=== PATIENT | female | born 1965 | race Caucasian/White ===

== ENCOUNTER 2024-06-16 08:04 | Outpatient (AMB) | payer OTHER, SELFPAY ==
--- NOTE | 2024-06-16 08:07 | MHC.PC.OV ---
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: No Accompanied by: Self / Same As Patient Allergies atorvastatin Allergy (Unknown, Uncoded 06/16/24 08:13) hives, joint pain metformin Adverse Reaction (Intermediate, Uncoded 06/16/24 08:13) hives plavix Adverse Reaction (Unknown, Uncoded 06/16/24 08:13) Unknown Medication List - Last Reconciled 06/16/24 by Becky Brooks PA-C apixaban (Eliquis) 5 mg PO BID colestipol 1 g PO BID diltiazem HCl ER (Tiadylt ER) 360 mg PO DAILY estradiol 0.01%(0.1mg/gram) vaginal losartan 50 mg PO DAILY metoprolol succinate ER 25 mg PO DAILY jelxispmqbom-ruq-grdd-FA-vit K 18 mg iron-400 mcg-25 mcg (Adults Multivitamin) tabs PO naproxen sodium 440 mg PO DAILY nystatin (Nyamyc) topical BID zinc glycinate 30 mg PO DAILY Tobacco use date assessed: 06/16/24 Dental Screening Dental Screen Date: 06/16/24 Did you have a dental visit in the last 12 months?: No Did you have a dental problem in the last 6 months where you did not have access to dental care?: No Was dental information given to patient?: Patient has dentist HPI 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 She has a history of paroxysmal atrial fibrillation on anticoagulation and is followed by Cardiology. She was recently seen 04/2024 by Cardiology after failed cardioversion continue on metoprolol and diltiazem for rate control and Eliquis for anticoagulation. Presenting with diarrhea management and follow-up for chronic conditions. The patient reports ongoing episodes of diarrhea since bariatric surgery on December 19, 2022, characterized by initial regularity, followed by softening and liquidity. Significant weight loss reported post-surgery, maintaining over a 180-pound reduction. Diarrheal episodes are influenced by food intake and have been partially managed through the BRAT diet and Pepto-Bismol, with limited efficacy. Evaluations at [facility] and [facility], including bloodwork, CT scans, and stool analyses, excluded infectious causes. The patient associates symptoms with possible malabsorption due to the absence of the gallbladder and patient was recently evaluated by [facility] and started on colestipol and plan for colonoscopy. The patient denies nausea, vomiting, and fever but has substantial concerns about her nutritional status and overall health. She follows with gynecology through [facility] and has Pap smears regularly. [facility] Surgical History S/P gastric sleeve procedure History of cholecystectomy Family History Family/Other Substance use disorder Mother No problems noted. Father No problems noted. Social History Housing: Apartment Alcohol intake: current Alcohol intake frequency: holidays/special occasions only Alcohol type: hard liquor Patient Tobacco Use Status: Never used Tobacco e-Cigarette/Vaping Use: Never Used Second Hand Smoke Exposure: No service: No Current occupational status: employed Cognitive needs: No Hearing needs: No Vision needs: No Female Reproductive History Menstrual control method: none Total pregnancies: 6 Full term: 2 Ab induced: 1 Ab spontaneous: 3 History of abnormal pap smear: No Questionnaire PHQ-9 Over the last 2 weeks, how often have you been bothered by any of the following problems? 1. Little interest or pleasure in doing things: not at all 2. Feeling down, depressed, or hopeless: several days 3. Trouble falling or staying asleep, or sleeping too much: not at all 4. Feeling tired or having little energy: not at all 5. Poor appetite or overeating: several days 6. Feeling bad about yourself - or that you are a failure or have let yourself or your family down: not at all 7. Trouble concentrating on things, such as reading the newspaper or watching television: not at all 8. Moving or speaking so slowly that other people could have noticed. Or the opposite - being so fidgety or restless that you have been moving around a lot more than usual: not at all 9. Thoughts that you would be better off or of hurting yourself in some way: not at all Total score: 2 Depression Screening Interpretation: Positive Depression Screening Follow-up: Declines treatment Depression Screening Done: Yes Source: Developed by Drs. Oj Suero, Mimi Miguel, Mitch Piper and colleagues, with an educational spencer from [employer]. Thrive Questionnaire Date Thrive assessed: 06/16/24 I am a: Patient What is your living situation today?: I have a steady place to live Within the past 12 months, did the food you bought not last and you didn't have the money to get more?: Never true Within the past 12 months, did you worry whether your food would run out before you got money to buy more?: Never true Do you have trouble paying for medicines?: I choose not to answer this question Do you have trouble getting transportation to medical appointments?: No Do you have trouble paying your heating and electricity bill?: No Do you have trouble taking care of your child, family member or friend?: No Do you have trouble with day-to-day activities such as bathing, preparing meals, shopping, managing finances, etc.?: No Are you currently unemployed and looking for a job?: No Are you interested in more education?: No Please select the resources that you would like help with: None Currently or been in a relationship where the following occur: I choose not to answer THRIVE Score: 0 AUDIT C Alcohol Use Questionnaire (AUDIT-C) 1. How often do you have a drink containing alcohol?: Monthly or less 2. How many drinks containing alcohol do you have on a typical day when you are drinking?: 1 or 2 3. How often do you have six or more drinks on one occasion?: Less than monthly Total Score: 2 HERO-7 AMB Questionnaire HERO-7 Date HERO - 7 assessed: 06/16/24 Feeling nervous, anxious, or on edge: 1 = Several days Not being able to stop or control worryin = Several days Worrying too much about different things: 0 = Not at all Trouble relaxin = Not at all Being so restless that it is hard to sit still: 0 = Not at all Becoming easily annoyed or irritable: 1 = Several days Feeling afraid as if something awful might happen: 1 = Several days Total HERO-7 score (0-4 normal; 5-9 mild; 10-14 moderate; 15-21 severe): 4 Source: Developed by Drs. Oj Suero, Mimi Miguel, Mitch Piper and colleagues, with an educational spencer from [employer]. HERO-7 Assessment Billing HERO-7 Assessment Tool: HERO-7 Assessment 15318 Review of Systems Const Denies body aches, Denies chills, Denies fever(s), Denies headache(s) and Denies poor appetite Eyes Reports no additional complaints ENT Denies dysphagia, Denies dizziness, Denies headache(s) and Denies odynophagia Card Denies chest pain, Denies syncope, Denies edema, Denies irregular heart rhythm, Denies lightheadedness and Denies dyspnea Resp Denies cough and Denies dyspnea GI Denies abdominal pain, Reports bloating, Denies constipation, Denies dysphagia, Reports excessive flatus, Reports diarrhea, Denies nausea, Denies odynophagia and Denies vomiting Reports no additional complaints Musc Reports no additional complaints and Denies abnormal gait Skin/Breast Reports system reviewed and no additional complaints, except as documented Neuro Denies abnormal gait, Denies dizziness, Denies syncope and Denies headache(s) Psych Reports no additional complaints Physical exam (Primary Care) Vital Signs: Last Vital Signs Temp 97.1 F 06/16/24 08:09 BP 120/86 06/16/24 08:09 BMI result Body Mass Index 26.0 Tobacco/Smoking Status: Tobacco use Status Tobacco use date assessed 06/16/24 06/16/24 08:19 Patient Tobacco Use Status Never used Tobacco 06/16/24 08:19 e-Cigarette/Vaping Use Never Used 06/16/24 08:19 PHQ-9: PHQ-9 Score PHQ-9: Total score 2 06/16/24 10:09 Depression Screening Interpretation: Positive Depression Screening Follow-up: Declines treatment Thrive Assessment: Date of Thrive Assessment Date Thrive assessed 06/16/24 06/16/24 08:13 Currently or been in a relationship where the following occur: I choose not to answer Const General: cooperative, healthy appearing, comfortable and no acute distress Orientation/consciousness: patient oriented x3 HENMT Head: Yes normocephalic Ears: hearing grossly normal bilaterally General nose exam: Normal external nose present Eyes General: appearance normal, both eyes and all related structures Conjunctivae: conjunctivae normal Neck Neck: Yes full ROM and Yes no lymphadenopathy Resp Effort & Inspection: normal respiratory effort Auscultation: clear to auscultation bilaterally, no crackles, no rales, no rhonchi and no wheezes Cardio Rate: regular rate Rhythm: regular rhythm Skin General skin exam: no rashes or lesions noted Neuro General: patient oriented x3 Gait exam (Neuro): Normal gait present Extrem General: Yes normal to inspection, Yes full ROM and No edema Psych Affect: normal affect Attitude: cooperative Insight: Good insight present (Psych) Judgement: Good judgement present (Psych) Coding Level of Care Code New Pt Level 4 (51049) Diagnoses Persistent atrial fibrillation I48.19 Atrial fibrillation type: persistent (not longstanding) Primary hypertension I10 Hypertension type: primary hypertension Diarrhea due to malabsorption K90.9; R19.7 Diarrhea type: due to malabsorption Malabsorption K90.9 Diverticulosis K57.90 Additional Codes HERO-7 Assessment Billing - HERO-7 Assessment Tool: HERO-7 Assessment 17490 ([id number]) Assessment & Plan Assessment & Plan (1) Atrial fibrillation: Comment: Cardiology Code(s): I48.91 - Unspecified atrial fibrillation Category: Medical Qualifiers: Atrial fibrillation type: persistent (not longstanding) Qualified Code(s): I48.19 - Other persistent atrial fibrillation Plan: Follows with [facility] had unsuccessful ablation. She is maintained on metoprolol and diltiazem and anticoagulation with Eliquis. (2) Hypertension: Code(s): I10 - Essential (primary) hypertension Category: Medical Qualifiers: Hypertension type: primary hypertension Qualified Code(s): I10 - Essential (primary) hypertension Plan: Continue on current blood pressure medication. Avoid salt intake and encourage healthy diet and regular exercise. (3) Diarrhea: Code(s): R19.7 - Diarrhea, unspecified Category: Medical Qualifiers: Diarrhea type: due to malabsorption Qualified Code(s): K90.9 - Intestinal malabsorption, unspecified; R19.7 - Diarrhea, unspecified Plan: Patient is following with [facility] was seen yesterday. She was started on colestipol for possible malabsorption and planned for colonoscopy. I did also recommend the use of sucralfate which patient has not home to treat gas and bloating symptoms. Also recommended adding a fiber supplement to the diet to help bulk the stools. Continue to follow up with GI (4) Malabsorption: Code(s): K90.9 - Intestinal malabsorption, unspecified Category: Medical Plan: See plan above (5) Diverticulosis: Code(s): K57.90 - Diverticulosis of intestine, part unspecified, without perforation or abscess without bleeding Category: Medical Plan: Patient was diagnosed with diverticulosis by her GI provider and is planning to have colonoscopy to be scheduled with [facility]. Plan To address the patient?s chronic diarrhea, we will initiate treatment with colestipol to manage bile acid symptoms associated with prior cholecystectomy. This will be taken twice daily, complemented by dietary modifications involving fiber supplements with meals. We will explore a trial of the low FODMAP diet for potential sensory triggers. Use simethicone as needed for gas relief. Coordination with the gastroenterology team at [facility] for follow-up and colonoscopy scheduling is a priority. A three-month follow-up appointment is planned to monitor the patient's response to interventions and overall health maintenance, including overdue mammograms. This note was constructed using voice recognition software. While every effort has been made to ensure accuracy and sand technician, still areas may have been included sometimes these areas may affect the content or meeting of the given symptoms. Total time spent caring for the patient today was 30 minutes. This includes time spent before the visit reviewing the chart, time spent during the visit, and time spent after the visit and documentation. Patient was informed and verbally consented to the use of an ambient scribe for clinic note documentation during this visit. Orders: Orders MM tomosynthesis screening BI Today Z12.31 - Encounter for screening mammogram for malignant neoplasm of breast
--- OUTSIDE RECORDS SUMMARY | 2024-06-16 08:07 | XMS_ITS | Encounter Summary ---
Author Organization [facility] Address [address] [place] [address] Care Team Providers Care Scheduling Coordinator Name Role Phone Sonam Boles MD Primary Care Provider [phone] Reason for Visit * Reason Comments steatorrhea * Consultation (Routine) - Authorized Specialty Diagnoses / Procedures Referred By Alpohnso van Referred To Contact Gastroenterology Diagnoses Overweight (BMI 25.0-29.9) Steatorrhea Bariatric surgery status Ritika Payan PA 175 [facility] [address] [place] [address] Phone: tel: fax: Gastroenterology - [place] [address] [place] [address] Phone: tel: fax: Referral ID Status Reason Start Date Expiration Date Visits Requested Visits Authorized [id number] Authorized Specialty Services Required 05/18/2024 05/18/2025 1 1 Encounter Details Date Type Department Care Team ([facility] Contact Info) Description 06/15/2024 1:20 PM EDT Consult Gastroenterology [facility] 175 [facility] 175 [facility] [address] [place] [address] Merna Saravia NP 175 [facility] [address] [place] [address] Intestinal malabsorption following gastrectomy (Primary Dx); Screening for colorectal cancer; Gassiness Social History Tobacco Use Types Packs/Day Years Used Date Smoking Tobacco: Never Smokeless Tobacco: Never Alcohol Use Standard Drinks/Week Comments Yes 0 (1 standard drink = 0.6 oz pur e alcohol) occasional Comments No Sex and Gender Information Value Date Recorded Sex Assigned at Female 04/07/2024 10:52 PM EST Legal Sex Female 10:25 AM EST Gender Identity Female 04/07/2024 10:52 PM EST Sexual Orientation Choose not to disclose 2024 10:52 PM EST documented as of this encounter Last Filed Vital Signs Vital Sign Reading Time Taken Comments Blood Pressure 122/75 06/15/2024 1:12 PM EDT Pulse 98 06/15/2024 1:12 PM EDT Temperature - - Respiratory Rate - - Oxygen Saturation 98% 06/15/2024 1:12 PM EDT Inhaled Oxygen Concentration - - Weight 77.6 kg (171 lb) 06/15/2024 1:12 PM EDT Height 172.7 cm (5' 8 ) 06/15/2024 1:12 PM EDT Body Mass Index 26 06/15/2024 1:12 PM EDT documented in this encounter Functional Status * Are you deaf or do you have serious difficulty hearing? Answer Date of Assessment Author No 04/07/2024 3:44 PM Jessika Harrison RN * Are you blind or do you have serious difficulty seeing, even when wearing glasses? Answer Date of Assessment Author No 04/07/2024 3:44 PM Jessika Harrsion RN * Do you have serious difficulty walking or climbing stairs? Answer Date of Assessment Author No 04/07/2024 3:44 PM Jessika Harrison RN * Do you have serious difficulty dressing or bathing? Answer Date of Assessment Author No 04/07/2024 3:44 PM Jessika Harrison RN * Because of a physical, mental, or emotional condition, do you have serious difficulty doing errandsalone such as visiting the doctor? Answer Date of Assessment Author No 04/07/2024 3:44 PM Jessika Harrison RN documented as of this encounter Mental Status * Because of a physical, mental, or emotional condition, do you have serious difficulty concentrating, remembering, or making decisions? (5 years old or older) Answer Entry Date Author No 04/07/2024 3:44 PM Jessika Harrison RN documented in this encounter Ordered Prescriptions Prescription Sig Dispense Quantity Refills Last Filled Start Date End Date colestipoL (COLESTID) 1 gram tablet Take 1 tablet (1 g total) by mouth 2 (two) times a day. 60 each 06/15/2024 07/15/2024 documented in this encounter Progress Notes * Merna Saravia, ERP ANALYST - 06/15/2024 1:20 PM EDT CONSULT REQUEST CHIEF COMPLAINT: Diarrhea HPI: Hallie Mays is a 58 y.o. old female whose PMH includes anxiety, atrial fibrillation, chronic knee pain, diabetes, hiatal hernia, hypertension, obstructive sleep apnea, trochanteric bursitis of left hip, ventricular septal defect and s/p gastric sleeve gastrectomy 2022 was referred by Ritika Payan PA to the gastroenterology department today for evaluation of diarrhea. Patient is accompanied by a male friend during this visit. She reports sleeve gastrectomy with hiatal hernia repair with Dr. Figueroa at [facility] on 12/19/2022. However, she has been experiencing diarrhea multiple times a day. She describes diarrhea as type or type VII on [place] stool chart with associated abdominal cramping that is relieved with defecation and gassiness. She notesstool looks like it is fatty . She completed stool studies on 04/05/2024 which were unremarkable. She completed CT scan on 05/25/2024 which was unremarkable. Today, she denies fever or malaise, nausea,vomiting, dysphagia, odynophagia, hematemesis, abdominal pain, loss of appetite, unintentional weight loss, melena or hematochezia. She denies alcohol, tobacco or marijuana use. No known family history of gastrointestinal cancer. No historical colonoscopy or EGD. CT abdomen/pelvis without contrast 05/25/2024: Sigmoid diverticulitis. No evidence of acute diverticulitis or colitis. No acute findings. ROS: GENERAL: No malaise, significant weight loss or fever HEENT: No changes in hearing or vision, nose bleeds or swallowing problems NECK: No lumps, goiter, pain or significant neck swelling RESPIRATORY: No cough, wheezing or shortness of breath CARDIOVASCULAR: No chest pain GI: See HPI MUSCULOSKELETAL: No joint pain or swelling, back pain, or muscle pain. SKIN: No lesions, rash or itching PAST MEDICAL HISTORY: Patient Active Problem List Diagnosis Abnormal stress test Anxiety Atrial fibrillation with RVR ([facility] V24, [facility] V28) Chronic knee pain Diabetes ([facility] V24, [facility] V28) Hiatal hernia Hypertension Obstructive sleep apnea Trochanteric bursitis, left hip VSD (ventricular septal defect) Class 1 obesity with serious comorbidity and body mass index (BMI) of 30.0 to 30.9 in adult Overweight (BMI 25.0-29.9) Bariatric surgery status PAST SURGICAL HISTORY: Past Surgical History: Procedure Laterality Date CHOLECYSTECTOMY PROCEDURE: HISTORICAL CHOLECYSTECTOMY OTHER SURGICAL HISTORY PROCEDURE: NM GASTRIC RSTCV W/PRTL GASTRECTOMY 50-100 CM; COMMENT: sleeve- on 2022 WISDOM TOOTH EXTRACTION PROCEDURE: HISTORICAL WISDOM TEETH EXTRACTION SOCIAL HISTORY: Social History Tobacco Use Smoking status: Never Smokeless tobacco: Never Substance Use Topics Alcohol use: Yes Comment: occasional Drug use: No FAMILY HISTORY: No family history on file. MEDICATIONS: Outpatient Medications Marked as Taking for the 06/15/24 encounter (Consult) with Merna Saravia NP Medication Sig Dispense Refill apixaban (Eliquis) 5 mg tablet TAKE ONE TABLET BY MOUTH TWICE A DAY dilTIAZem (TIAZAC) 360 mg 24 hr capsule Take 1 capsule (360 mg total) by mouth 1 (one) time each day. 90 capsule 1 estradioL (ESTRACE) 0.01 % (0.1 mg/gram) vaginal cream Apply 1gm apply pv daily for the 1st wk thentwice wkly losartan (COZAAR) 50 mg tablet TAKE ONE TABLET BY MOUTH EVERY DAY metoprolol succinate (TOPROL-XL) 25 mg 24 hr tablet Take 1 Tablet by mouth daily. multivit-min/iron/folic acid/K (ADULTS MULTIVITAMIN ORAL) Take 1 Tablet by mouth daily. naproxen sodium (ANAPROX) 220 mg tablet Take 2 Tablets by mouth daily as needed. nystatin (MYCOSTATIN) 100,000 unit/gram powder Apply topically 2 (two) times a day. 15 g 0 zinc glycinate 30 mg capsule Take 1 Capsule by mouth daily. ALLERGIES: Allergies Allergen Reactions Atorvastatin Calcium Other Reaction(s): Hives/Urticaria Clopidogrel Other Reaction(s): Hives/Urticaria Metformin Rash with sun PHYSICAL EXAM: Visit Vitals BP 122/75 Pulse 98 Ht 1.727 m (68 ) Wt 77.6 kg (171 lb) SpO2 98% BMI 26.00 kg/m?? OB Status Postmenopausal Smoking Status Never BSA 1.91 m?? APPEARANCE: Alert and in no acute distress EYES: Conjunctiva and sclera normal. MOUTH/THROAT: No erythema, exudates or lesions noted NECK: Neck supple, no adenopathy HEART: RRR with normal S1 and S2 LUNG: clear to auscultation ABDOMEN: soft non tender, no ascites, guarding, or rebound. RECTAL: Exam deferred NEURO: Awake, alert and oriented x 3 SKIN: Skin color, texture, turgor normal. LABS: Lab Results Component Value Date WBC 4.0 (L) 04/07/2024 HGB 14.1 04/07/2024 HCT 45.1 04/07/2024 MCV 90.2 04/07/2024 PLT 182 04/07/2024 Lab Results Component Value Date ALT 20 04/26/2024 AST 20 04/26/2024 ALKPHOS 130 (H) 04/26/2024 BILITOT 0.7 04/26/2024 IMAGING: CT abdomen/pelvis without contrast 05/25/2024: Sigmoid diverticulitis. No evidence of acute diverticulitis or colitis. No acute findings. IMPRESSION: 1. Intestinal malabsorption following gastrectomy 2. Screening for colorectal cancer PLAN: Hallie Mays is a 58 y.o. old female whose PMH includes anxiety, atrial fibrillation, chronic knee pain, diabetes, hiatal hernia, hypertension, obstructive sleep apnea, trochanteric bursitis of left hip, ventricular septal defect and s/p gastric sleeve gastrectomy 2022 presents for evaluation of danie sims. 1. Intestinal malabsorption following gastrectomy: Stool studies including GI panel and C. difficile completed through her PCP negative. CT scan completed 05/25/2024 unremarkable. There is a question if diarrhea is due to intestinal malabsorption sincesymptoms started after sleeve gastrectomy. Please also question of bile salt induced diarrhea givenhistory of cholecystectomy. Empiric trial of colestipol. Also, complete pancreatic elastase given subjective steatorrhea. 2. Screening for colorectal cancer: No historical colonoscopy. I reviewed colorectal cancer screening guidelines, risks and benefits. She will proceed with screening colonoscopy. Patient understands the risks of colonoscopy include infection, bleeding and/or bowel perforation with its own emergent surgery and complication. Polypectomy and/or tissue biopsy may be performed during the procedure. 3. Gassiness: May use Gas-X or simethicone as needed. Eliminate gas producing foods. Follow-up after colonoscopy or sooner if needed. Patient agrees with the above plan and understands the need to follow up as indicated. Please note, this note may have been created in part by using [employer] dictation software, and therefore, it may contain typographical and/or grammatical errors inherent in a voice recognition software program I would like to thank Ritika Payan PA for the opportunity to partake in the patient's care. Orders Placed This Encounter Procedures Total IgA, TTG Ab IgA, endomysial Ab IgA and gliadin antibodies Pancreatic elastase 1 AMB REFERRAL TO GASTROENTEROLOGY documented in this encounter Plan of Treatment Upcoming Encounters Date Type Department Care Team (Late st Contact Info) Description 08/13/2024 1:00 PM EDT Nutrition Bariatric Surgery - [address] [phone] Melinda Ann, RD [address] [address] 08/24/2024 1:15 PM EDT Office Visit Bariatric Surgery [address] [phone] Ritika Payan PA [address] [phone] Scheduled Orders Name Type Priority Associated Diagnoses Orde r Schedule Total IgA, TTG Ab IgA, endomysial Ab IgA and gliadin antibodies Lab Routine Intestinal malabsorption following gastrectomy 1 Occurrences starting 06/15/2024 until 06/15/2025 Pancreatic elastase 1 Lab Routine Intestinal malabsorption following gastrectomy 1 Occurrences starting 06/15/2024 until 06/15/2025 documented as of this encounter Visit Diagnoses Diagnosis Intestinal malabsorption following gastrectomy- Primary Screening for colorectal cancer Gassiness Flatulence, eructation, and gas pain documented in this encounter Orders Outpatient Referral Count Last Ordered Date Fir st Ordered Date AMB REFERRAL TO GASTROENTEROLOGY 1 06/16/19 documented in this encounter Care Teams Scheduling Coordinator Relationship Specialty Start Date End Date Sonam Boles MD [address] [place] [address] PCP - General Internal Medicine 04/15/24 documented as of this encounter
--- OUTSIDE RECORDS SUMMARY | 2024-06-16 08:07 | XMS_ITS | Encounter Summary ---
Author Organization [facility] Address [address] [place] [address] Care Team Providers Care Contract Design Agent Name Role Phone Sonam Boles MD Primary Care Provider [phone] Encounter Details Date Type Department Care Team ([facility] st Contact Info) Description 06/15/2024 Telephone Gastroenterology - [place] 175 [facility] 175 [facility] [address] [place] [address] Merna Saravia NP 175 [facility] [address] [place], [place] [phone] Social History Tobacco Use Types Packs/Day Years [...] PM EST documented as of this encounter Functional Status * Are you deaf or do you have serious difficulty hearing? Answer Date of Assessment Author No 04/07/2024 3:44 PM EST Jessika Flowers RN * Are you blind or do you have serious difficulty seeing, even when wearing glasses? Answer Date of Assessment Author No 04/07/2024 3:44 PM EST Jessika Flowers RN * Do you have serious difficulty [...] Jessika Harrison RN documented in this encounter Progress Notes * Merna Saravia NP - 06/15/2024 4:35 PM EDT Please schedule screening colonoscopy next available. Thank you. documented in this encounter Plan of Treatment Upcoming Encounters Date Type Department Care Team (Late st Contact Info) Description 08/13/2024 1:00 PM EDT Nutrition Bariatric Surgery - [address] [phone] [phone] 08/24/2024 1:15 PM EDT Office Visit Bariatric Surgery - [place] [address] [phone] Ritika Payan PA [address] [phone] documented as of this encounter Visit Diagnoses Not on filedocumented in this encounter Care Teams Contract Design Agent Relationship Specialty Start Date End Date Sonam Boles MD [address] [facility] [place] [address] PCP - General Internal Medicine 04/15/24 documented as of this encounter
--- OUTSIDE RECORDS SUMMARY | 2024-06-16 08:07 | XMS_ITS | Clinical Summary ---
Author Organization 175 [facility] Address [address] [place] [address] Phone Care Team Providers Care First Dyer Name Role Phone Sonam Boles MD Primary Care Provider [phone] Allergies Active Allergy Reactions Criticality Noted Date Comments Atorvastatin Calcium 02/04/2019 Other Reaction(s): Hives/Urticaria Clopidogrel 04/02/2019 Other Reaction(s): Hives/Urticaria Metformin 09/03/2022 Rash with sun Medications losartan (COZAAR) 50 mg tablet TAKE ONE TABLET BY MOUTH EVERY DAY 4 Active apixaban (Eliquis) 5 mg tablet TAKE ONE TABLET BY MOUTH TWICE A DAY 4 Active metoprolol succinate (TOPROL-XL) 25 mg 24 hr tablet Take 1 Tablet by mouth daily. 4 Active zinc glycinate 30 mg capsule Take 1 Capsule by mouth daily. 4 Active naproxen sodium (ANAPROX) 220 mg tablet Take 2 Tablets by mouth daily as needed. Active multivit-min/iron /folic acid/K (ADULTS MULTIVITAMIN ORAL) Take 1 Tablet by mouth daily. Active estradioL (ESTRACE) 0.01 % (0.1 mg/gram) vaginal cream Apply 1gm apply pv daily for the 1st wk then twice wkly 4 11/01/19 25 Active nystatin (MYCOSTATIN) 100,000 unit/gram powder Apply topically 2 (two) times a day. 15 g 4 01/13/20 25 Active dilTIAZem (TIAZAC) 360 mg 24 hr capsule Take 1 capsule (360 mg total) by mouth 1 (one) time each day. 90 capsule 1 5 Active colestipoL (COLESTID) 1 gram tablet Take 1 tablet (1 g total) by mouth 2 (two) times a day. 60 each 5 07/16/19 25 Active Active Problems Problem Noted Date Diagnosed Date Bariatric surgery status 01/06/2024 Overweight (BMI 25.0-29.9) 12/22/2023 Class 1 obesity with serious comorbidity and body mass index (BMI) of 30.0 to 30.9 in adult 06/23/2023 Abnormal stress test 01/20/2023 Overview (11/12/2023): Last Assessment & Plan: Patient had a cardiac PET stress test which showed no evidence of ischemia however there was reduced blood flow with stress in 3 major coronary arteries. We will continue with risk factor modifying strategies. Patient is status post recent bariatric surgery and she is actively exercising and losing weight. Her blood pressure is poorly controlled and we have addressed that today. She presently is not on any lipid-lowering agents. Her last LDL cholesterol was 89. She will continue with her diet and exercise and we will continue to monitor carefully. Atrial fibrillation with RVR (CMS/HCC V24, CMS/H CC V28) 05/20/2022 Overview (11/12/2023): Last Assessment & Plan: Patient has history of atrial fibrillation with history of unsuccessful cardioversion in the past. She has been on diltiazem for rate control and Eliquis for anticoagulation. Heart rate is slightly elevated today and I will add metoprolol 25 mg once a day which she will take at night. She will continue with diltiazem 360 mg in the morning. Her EKG did show some ST and T wave abnormality however she is asymptomatic and denies any exertional anginal symptoms. I believe this is likely related to her aberrantly conducted complexes. I am hopeful that this will improve with the addition of metoprolol. She had a cardiac PET stress test completed prior to surgery which showed no evidence of ischemia. Continue with Eliquis for anticoagulation. Assessment & Plan (04/27/2024 2:58 PM EDT): Patient with chronic atrial fibrillation. Failed to maintain sinus rhythm after cardioversion. Relatively asymptomatic but requires metoprolol and diltiazem for rate control. We reviewed the Eliquis for anticoagulation without bleeding problems. Had negative PET scan done prior to gastric bypass surgery.The PET scan showed no ischemia. Hiatal hernia 04/30/2022 Obstructive sleep apnea 06/18/2021 Overview (11/12/2023): Obstructive sleep apnea moderate AHI 15 with nocturnal hypoxemia: [facility] Home sleep test 06/11/2021. Weight 335. BMI 49. AHI 15. 11 obstructive apneas, 1 central apnea and 66 hypopneas. Average oxygen saturation 91% with oxygen donna 70%. Obstructive sleep apnea-moderate with mostly hypopneas and some obstructive apneas with nocturnal hypoxemia based on 2021 home sleep test. Last Assessment & Plan: Patient has history of sleep apnea. She has been tested in the past but had difficulty with CPAP mask the past. At this point she is using his CPAP nightly. Anxiety 04/03/2020 Diabetes (CMS/HCC V24, CMS/HCC V28) 03/24/2020 Trochanteric bursitis, left hip 04/02/2019 Chronic knee pain 02/05/2019 Overview (11/12/2023): Bursitis and OA VSD (ventricular septal defect) 02/05/2019 Overview (11/12/2023): Last Assessment & Plan: Again she reported a history of a VSD on old echocardiograms. The echocardiogram done in the hospital did not show a significant VSD. We will continue to monitor for this. Hypertension 02/04/2019 Overview (11/12/2023): Last Assessment & Plan: Blood pressure is borderline with a reading today of 140/80. She continues on diltiazem and losartan. Will add metoprolol today. Encounters Date Type Department Care Team Description 06/15/2024 1:20 PM EDT Consult Gastroenterology - [place] [address] [facility] [address] [place] [address] Merna Saravia NP Intestinal malabsorption following gastrectomy (Primary Dx); Screening for colorectal cancer; Gassiness 06/15/2024 Telephone Gastroenterology [facility] 175 [facility] 175 [facility] [address] [place] [address] Merna Saravia NP 05/25/2024 12:23 PM EDT - 05/25/2024 11:59 PM EDT Hospital Encounter [facility] Scan [address] [place] [address] Abdominal pain, unspecified abdominal location; Abdominal distention Discharge Disposition: Home or Self Care 05/24/2024 1:00 PM EDT Nutrition Bariatric Surgery - [address] [place] [address] Overweight (BMI 25.0-29.9) (Primary Dx) 05/18/2024 1:45 PM EDT Office Visit Bariatric Surgery [address] [place] [address] Ritika Payan PA Overweight (BMI 25.0-29.9) (Primary Dx); Steatorrhea; Bariatric surgery status 04/30/2024 Telephone Bariatric Surgery - [address] [place] [address] Ritika Payan PA 04/27/2024 1:30 PM EDT Office Visit [facility] - [address] [place] [phone] Adelfo Mondragon MD Atrial fibrillation with RVR (CMS/HCC V24, CMS/HCC V28) (Primary Dx) 04/15/2024 10:30 AM EST Office Visit Bariatric Surgery [address] [address] Ritika Payan PA Overweight (BMI 25.0-29.9) (Primary Dx); Hx of obesity; Bariatric surgery status; Elevated liver function tests; Diarrhea, unspecified type 04/07/2024 3:06 PM EST - 04/07/2024 10:[address] [facility] [address] [place] [address] Discharge Disposition: Left Against Medical Advice 04/05/2024 1:30 PM EST Office Visit [facility] - [place] [address] [place] [address] Bre Jose NP Diarrhea of presumed infectious origin (Primary Dx) from Last 3 Months Surgical History Surgery Date Site/Laterality Comments CHOLECYSTECTOMY PROCEDURE: HISTORICAL CHOLECYSTECTOMY WISDOM TOOTH EXTRACTION PROCEDURE: HISTORICAL WISDOM TEETH EXTRACTION OTHER SURGICAL HISTORY PROCEDURE: NM GASTRIC RSTCV W/PRTL GASTRECTOMY 50-100 CM; COMMENT: sleeve- on 2022 Medical History Medical History Date Comments Hypertension 02/04/2019 DX:Hypertension VSD (ventricular septal defect) 02/05/2019 DX:VSD (ventricular septal defect) Chronic knee pain 02/05/2019 DX:Chronic kne e pain; COMMENT: Bursitis and OA Trochanteric bursitis, left hip 04/02/2019 DX:Trochanteric bursitis, left hip Morbid obesity with BMI of 5 0.0-59.9, adult ([facility] V24, [facility] V28) 04/02/2019 DX:Morbid obesity wit h BMI of 50.0-59.9, adult ([facility]) History of stroke 04/02/2019 DX:History of stroke Diabetes ([facility] V24, [facility] V28) 03/24/2020 DX:Diabetes ([facility]) Anxiety 04/03/2020 DX:Anxiety Paroxysmal atrial fibrillati on ([facility] V24, [facility] V28) DX:Paroxysmal atrial fibril lation ([facility]) Social History Tobacco Use Types Packs/Day Years Used Date Smoking Tobacco: Never Smokeless Tobacco: Never Tobacco Cessation:Counseling Given: Not Answered Alcohol Use Standard Drinks/Week Comments Yes 0 (1 standard drink = 0.6 oz pur e alcohol) occasional Comments No Sex and Gender Information Value Date Recorded Sex Assigned at Female 04/07/2024 10:52 PM EST Legal Sex Female 10:25 AM EST Gender Identity Female 04/07/2024 10:52 PM EST Sexual Orientation Choose not to disclose 2024 10:52 PM EST Obstetrics History Last Filed Vital Signs Vital Sign Reading Time Taken Comments Blood Pressure 122/75 06/15/2024 1:12 PM EDT Pulse 98 06/15/2024 1:12 PM EDT Temperature 36.5 ??C (97.7 ??F) 04/07/2024 3:39 PM ES T Respiratory Rate 18 04/07/2024 3:39 PM EST Oxygen Saturation 98% 06/15/2024 1:12 PM EDT Inhaled Oxygen Concentration - - Weight 77.6 kg (171 lb) 06/15/2024 1:12 PM EDT Height 172.7 cm (5' 8 ) 06/15/2024 1:12 PM EDT Body Mass Index 26 06/15/2024 1:12 PM EDT Plan of Treatment Upcoming Encounters Date Type Department Care Team (Late st Contact Info) Description 08/13/2024 1:00 PM EDT Nutrition Bariatric Surgery - [place] [address] [phone] Melinda Ann, STEPHANIE [address] [address] 08/24/2024 1:15 PM EDT Office Visit Bariatric Surgery [facility] [address] [address] Ritika Payan PA [address] [address] Health Maintenance Due Date Last Done Comments Breast Cancer Screening 1966 Diabetes: Annual Foot Exam 1976 Diabetes: Annual Retina Eye Exam 1976 Hepatitis B Vaccines (1 of 3 - 19+ 3-dose series) 1985 Pneumococcal Vaccine: 50+ Years (1 of 2 - PCV) 1985 Pneumococcal Vaccine: Pediatrics (0 to 5 Years) and At-Risk Patients (6 to 64 Years) (1 of 2 - PCV) 1985 Zoster Vaccines (1 of 2) 2016 Colorectal Cancer Screening: Stool Based Tests (FOBT/FIT) 01/26/2022 Depression Screening 01/26/2022 HIV Screening 01/26/2022 Social Influencers of Health Screening 01/26/2022 Diabetes: Annual Urine Albumin-Creatinine Ratio (uACR) 06/13/2022 06/13/2021 COVID-19 Vaccine ( season) 2023 Diabetes: Blood Sugar Control Test (HGBA1C) 12/24/2023 06/23/2023, 06/23/2023 Diabetes: Annual GFR (Glomerular Filtration Rate) 04/07/2025 04/07/2024, 01/08/2024, 11/20/2023, Additional history exists Hypertension/CHF/CAD Annual BMP Blood Test 04/07/2025 04/07/2024, 01/08/2024, 11/20/2023, Additional history exists Cervical Cancer Screening: HPV 09/04/2027 09/03/2022 Cholesterol Screening (Lipid Panel) 01/09/2028 01/08/2023 DTaP,Tdap,and Td Vaccines (2 - Td or Tdap) 11/19/2033 11/20/2023 Hepatitis C Screening Completed 09/14/2021 Influenza Vaccine Completed 11/20/2023 HIB Vaccines Aged Out No longer eligi ble based on patient's age to complete this topic HPV Vaccines Aged Out No longer eligi ble based on patient's age to complete this topic Hepatitis A Vaccines Aged Out No long er eligible based on patient's age to complete this topic IPV Vaccines Aged Out No longer eligi ble based on patient's age to complete this topic MMR Vaccines Aged Out No longer eligi ble based on patient's age to complete this topic Meningococcal ACWY Vaccine Aged Out N o longer eligible based on patient's age to complete this topic Meningococcal B Vaccine Aged Out No l onger eligible based on patient's age to complete this topic RSV Immunization Patients Under 20 months Aged Out No longer eligible based on patient's age to complete this topic Varicella Vaccines Aged Out No longer eligible based on patient's age to complete this topic Procedures Procedure Name Priority Date/Time Associated Diagnosis Comments CT ABDOMEN PELVIS WO CONTRAST Routine 05/25/2024 12:34 PM EDT Abdominal pain, unspecified abdominal location Abdominal distention HEPATIC FUNCTION PANEL Routine 2:47 PM EDT Elevated liver function tests CBC WITH AUTO DIFFERENTIAL STAT 04/07/2024 4:48 PM EST LIPASE STAT 04/07/2024 4:48 PM EST COMPREHENSIVE METABOLIC PANEL STAT 04/07/2024 4:48 PM EST CBC AND DIFFERENTIAL STAT 04/07/2024 4:48 PM EST CLOSTRIDIUM DIFFICILE TOXIN Routine 04/05/2024 1:53 PM EST Diarrhea of presumed infectious origin GASTROINTESTINAL PATHOGENS BY PCR Routine 04/05/2024 1:53 PM EST Diarrhea of presumed infectious origin HEMOGLOBIN A1C Routine 06/23/2023 LIPID PANEL Routine 01/08/2023 HM HPV Routine 09/03/2022 HM HEPATITIS C SCREENING Routine 09/14/2021 HM URINE ALBUMIN CREATININE RATIO Routine 06/13/2021 from Last 3 Months or Most Recently Relevant to Health Maintenance Results * CT Abdomen Pelvis wo Contrast (05/25/2024 12:34 PM EDT) Anatomical Region Laterality Modality Body Computed Tomogra phy 05/27/2024 3:10 PM EDT Impressions 05/27/2024 3:16 PM EDT 1. ??Sigmoid diverticulosis. ??No evidence of acute diverticulitis. ??No acute findings. 2. ??Mild splenomegaly. -------- FINAL REPORT -------- Dictated By: Ilya Monroe Dictated Date: 05/27/2024 15:10 ET Assigned Physician: Ilya Monroe Reviewed and Electronically Signed By: Ilya Monroe Signed Date: 05/27/2024 15:16 ET Workstation ID: [id number] Transcribed By: Self Edit Transcribed Date: 05/27/2024 15:10 ET Narrative 05/27/2024 3:16 PM EDT PROCEDURE: CT of the abdomen and pelvis without intravenous contrast. HISTORY: Abdominal distension. Diverticulitis suspected. COMPARISON: No prior studies available for comparison. TECHNIQUE: Noncontrast CT of the abdomen and pelvis with coronal and sagittal reformats. Dose length product: ??817 mGy-cm. FINDINGS: Lung bases: Small amount of osteophyte associated scarring in the medial right lower lobe. ??There are a few thin linear bands of atelectasis or scarring at both bases. Cardiac: Moderate cardiomegaly. Liver: Limited evaluation without intravenous contrast. ??No visible abnormality. Biliary: Cholecystectomy. Pancreas: Limited evaluation without intravenous contrast. ??No visible abnormality. Spleen: Limited evaluation without intravenous contrast. ??Enlarged, measuring 14 cm craniocaudal. Adrenal glands: Normal. Kidneys: Limited evaluation without intravenous contrast. ??No visible abnormality. ??Normal appearance of the ureters. Retroperitoneum: No mass or adenopathy. Abdominal vasculature: Mild atherosclerotic calcification. Bowel/mesentery: Postsurgical changes of gastric sleeve procedure. ??Appendix not identified. ??Sigmoid diverticulosis without evidence of significant diverticulitis. ??No obstruction or adenopathy. ??No mass or ascites. Abdominal wall: Small fat-containing paraumbilical hernia. ??Mild anasarca. ??Mild scarring in the supraumbilical midline. Pelvic nodes: No adenopathy. Pelvic organs: Normal. Bones: Degenerative changes of the spine. ??Transitional anatomy on the left at the lumbosacral junction. Procedure Note Ilya Monroe MD - 05/27/2024 PROCEDURE: CT of the abdomen and pelvis without intravenous contrast. HISTORY: Abdominal distension. Diverticulitis suspected. COMPARISON: No prior studies available for comparison. TECHNIQUE: Noncontrast CT of the abdomen and pelvis with coronal andsagittal reformats. Dose length product: 817 mGy-cm. FINDINGS: Lung bases: Small amount of osteophyte associated scarring in the medialright lower lobe. There are a few thin linear bands of atelectasis orscarring at both bases. Cardiac: Moderate cardiomegaly. Liver: Limited evaluation without intravenous contrast. No visibleabnormality. Biliary: Cholecystectomy. Pancreas: Limited evaluation without intravenous contrast. No visibleabnormality. Spleen: Limited evaluation without intravenous contrast. Enlarged,measuring 14 cm craniocaudal. Adrenal glands: Normal. Kidneys: Limited evaluation without intravenous contrast. No visibleabnormality. Normal appearance of the ureters. Retroperitoneum: No mass or adenopathy. Abdominal vasculature: Mild atherosclerotic calcification. Bowel/mesentery: Postsurgical changes of gastric sleeve procedure.Appendix not identified. Sigmoid diverticulosis without evidence ofsignificant diverticulitis. No obstruction or adenopathy. No mass orascites. Abdominal wall: Small fat-containing paraumbilical hernia. Mild anasarca.Mild scarring in the supraumbilical midline. Pelvic nodes: No adenopathy. Pelvic organs: Normal. Bones: Degenerative changes of the spine. Transitional anatomy on theleft at the lumbosacral junction. IMPRESSION: 1. Sigmoid diverticulosis. No evidence of acute diverticulitis. Noacute findings. 2. Mild splenomegaly. -------- FINAL REPORT -------- Dictated By: Ilya Monroe Dictated Date: 05/27/2024 15:10 ET Assigned Physician: Ilya Monroe Reviewed and Electronically Signed By: Ilya Monroe Signed Date: 05/27/2024 15:16 ET Workstation ID: [id number] Transcribed By: Self Edit Transcribed Date: 05/27/2024 15:10 ET Ritika SHERIDAN IMG CT PROCEDURES Final Resu lt * (ABNORMAL) Hepatic function panel (04/26/2024 2:47 PM EDT) Total Protein 6.0 6.0 - 8.0 g/dL LAB CHEMISTRY METHOD 04/26/2024 6:41 PM EDT [facility] Albumin 3.2 3.2 - 5.0 g/dL LAB CHEMISTRY METHOD 04/26/2024 6:41 PM EDT [facility] Total Bilirubin 0.7 0.0 - 1.4 mg/dL LAB CHEMISTRY METHOD 04/26/2024 6:41 PM EDT [facility] Bilirubin, Direct 0.3 0.0 - 0.3 mg/dL LAB CHEMISTRY METHOD 04/26/2024 6:41 PM EDT [facility] Bilirubin, Indirect 0.4 0.0 - 1.1 mg/dL LAB CHEMISTRY METHOD 04/26/2024 6:41 PM EDT [facility] ALT (SGPT) 20 10 - 60 unit/L LAB CHEMISTRY METHOD 04/26/2024 6:41 PM EDT [facility] AST (SGOT) 20 10 - 42 unit/L LAB CHEMISTRY METHOD 04/26/2024 6:41 PM EDT [facility] Alkaline Phosphatase 130(H) 42 - 121 unit/L LAB CHEMISTRY METHOD 04/26/2024 6:41 PM EDT [facility] Blood Venous blood specimen / Unknown Venipuncture / Unknown 04/26/2024 2:47 PM EDT 04/26/2024 2:47 PM EDT us Ritika SHERIDAN LAB BLOOD ORDERABLES Final R esult [facility] [address] [place] [address], * (ABNORMAL) CBC auto differential (04/07/2024 4:48 PM EST) WBC 4.0(L) 4.8 - 10.8 K/[facility] HEMETOLOGY METHOD 04/07/2024 5:12 PM EST [facility] RBC 5.00(H) 3.80 - 4.80 M/mcL LAB HEMETOLOGY METHOD 04/07/2024 5:12 PM EST [facility] Hemoglobin 14.1 11.5 - 16.0 g/dL LAB HEMETOLOGY METHOD 04/07/2024 5:12 PM EST [facility] Hematocrit 45.1 35.0 - 47.0 % LAB HEMETOLOGY METHOD 04/07/2024 5:12 PM [facility] MCV 90.2 79.0 - 98.0 FL LAB HEMETOLOGY METHOD 04/07/2024 5:12 PM [facility] MCH 28.2 27.0 - 32.0 pcg LAB HEMETOLOGY METHOD 04/07/2024 5:12 PM [facility] MCHC 31.3(L) 32.0 - 37.0 g/dL LAB HEMETOLOGY METHOD 04/07/2024 5:12 PM [facility] RDW 12.8 11.0 - 15.0 % LAB HEMETOLOGY METHOD 04/07/2024 5:12 PM [facility] Platelets 182 130 - 400 K/mcL LAB HEMETOLOGY METHOD 04/07/2024 5:12 PM [facility] MPV 10.7 7.0 - 11.0 FL LAB HEMETOLOGY METHOD 04/07/2024 5:12 PM [facility] NRBC 0.0 <1.0 % LAB HEMETOLOGY METHOD 04/07/2024 5:12 PM [facility] NRBC Absolute 0.00 <0.10 K/mcL LAB HEMETOLOGY METHOD 04/07/2024 5:12 PM [facility] Neutrophils Relative 45.2 % LAB HEMETOLOGY METHOD 04/07/2024 5:12 PM [facility] Lymphocytes Relative 37.2 % LAB HEMETOLOGY METHOD 04/07/2024 5:12 PM [facility] Monocytes Relative 14.2 % LAB HEMETOLOGY METHOD 04/07/2024 5:12 PM [facility] Eosinophils Relative 2.3 % LAB HEMETOLOGY METHOD 04/07/2024 5:12 PM [facility] Basophils Relative 0.8 % LAB HEMETOLOGY METHOD 04/07/2024 5:12 PM EST [facility] Immature Granulocytes Relative 0.3 % LAB HEMETOLOGY METHOD 04/07/2024 5:12 PM EST [facility] Neutrophils Absolute 1.79 1.50 - 7.00 K/[facility] LAB HEMETOLOGY METHOD 04/07/2024 5:12 PM EST [facility] Lymphocytes Absolute 1.47 1.00 - 5.00 K/[facility] LAB HEMETOLOGY METHOD 04/07/2024 5:12 PM EST [facility] Monocytes Absolute 0.56 0.20 - 1.00 K/mcL LAB HEMETOLOGY METHOD 04/07/2024 5:12 PM EST [facility] Eosinophils Absolute 0.09 0.00 - 0.50 K/[facility] HEMETOLOGY METHOD 04/07/2024 5:12 PM EST [facility] Basophils Absolute 0.03 0.00 - 0.20 K/mcL LAB HEMETOLOGY METHOD 04/07/2024 5:12 PM EST [facility] Immature Granulocytes Absolute 0.01 0.00 - 0.03 K/[facility] HEMETOLOGY METHOD 04/07/2024 5:12 PM EST [facility] Blood Venous blood specimen / Unknown Venipuncture / Unknown 04/07/2024 4:48 PM EST 04/07/2024 5:03 PM EST us Ibrahima Frankel DO LAB BLOOD ORDERABLES Final Res ult [facility] [address] [place] [address], * Lipase (04/07/2024 4:48 PM EST) Lipase 33 13 - 75 unit/L LAB CHEMISTRY METHOD 04/07/2024 5:32 PM EST [facility] Blood Venous blood specimen / Unknown Venipuncture / Unknown 04/07/2024 4:48 PM EST 04/07/2024 5:03 PM EST us Ibrahima Frankel DO LAB BLOOD ORDERABLES Final Res ult [facility] [address] [place] [address], [place] [phone] * (ABNORMAL) Comprehensive metabolic panel (04/07/2024 4:48 PM EST) Sodium 143 133 - 145 mmol/L LAB CHEMISTRY METHOD 04/07/2024 5:35 PM EST [facility] Potassium 4.1 3.5 - 5.5 mmol/L LAB CHEMISTRY METHOD 04/07/2024 5:35 PM [facility] Chloride 106 96 - 110 mmol/L LAB CHEMISTRY METHOD 04/07/2024 5:35 PM [facility] CO2 33(H) 21 - 32 mmol/L LAB CHEMISTRY METHOD 04/07/2024 5:35 PM [facility] Anion Gap 4 3 - 11 LAB CHEMISTRY METHOD 04/07/2024 5:35 PM [facility] Glucose 103(H) 70 - 100 mg/dL LAB CHEMISTRY METHOD 04/07/2024 5:35 PM [facility] BUN 31(H) 5 - 25 mg/dL LAB CHEMISTRY METHOD 04/07/2024 5:35 PM [facility] Creatinine 0.67 0.50 - 1.10 mg/dL LAB CHEMISTRY METHOD 04/07/2024 5:35 PM [facility] eGFR 102 >=60 mL/min/1. 73m2 LAB CHEMISTRY METHOD 04/07/2024 5:35 PM [facility] Comment:Calculation based on the??Chronic Kidney Disease Epidemiology Collaboration (CKD-EPI) equation refit??without adjustment for race. BUN/Creatinine Ratio 46.3 LAB CHEMISTRY METHOD 04/07/2024 5:35 PM [facility] Calcium 10.0 8.5 - 10.5 mg/dL LAB CHEMISTRY METHOD 04/07/2024 5:35 PM [facility] AST (SGOT) 27 10 - 42 unit/L LAB CHEMISTRY METHOD 04/07/2024 5:35 PM [facility] ALT (SGPT) 78(H) 10 - 60 unit/L LAB CHEMISTRY METHOD 04/07/2024 5:35 PM [facility] Alkaline Phosphatase 180(H) 42 - 121 unit/L LAB CHEMISTRY METHOD 04/07/2024 5:35 PM [facility] Total Protein 6.2 6.0 - 8.0 g/dL LAB CHEMISTRY METHOD 04/07/2024 5:35 PM [facility] Albumin 3.3 3.2 - 5.0 g/dL LAB CHEMISTRY METHOD 04/07/2024 5:35 PM [facility] Total Bilirubin 1.0 0.0 - 1.4 mg/dL LAB CHEMISTRY METHOD 04/07/2024 5:35 PM [facility] Blood Venous blood specimen / Unknown Venipuncture / Unknown 04/07/2024 4:48 PM EST 04/07/2024 5:03 PM EST us Ibrahima Frankel DO LAB BLOOD ORDERABLES Final Res ult [facility] [address] [place] [address], * Gastrointestinal pathogens molecular study (04/05/2024 1:53 PM EST) Campylobacter Detection by PCR Not Detected Not Detected LAB MICROBIOLOGY METHOD 5 9:11 PM [facility] Plesiomonas shigelloides Detection by PCR Not Detected Not Detected LAB MICROBIOLOGY METHOD 5 9:11 PM [facility] Salmonella Detection by PCR Not Detected Not Detected LAB MICROBIOLOGY METHOD 5 9:11 PM [facility] Vibrio Detection by PCR Not Detected Not Detected LAB MICROBIOLOGY METHOD 5 9:11 PM [facility] Vibrio cholerae Detection by PCR Not Detected Not Detected LAB MICROBIOLOGY METHOD 5 9:11 PM [facility] Yersinia enterocolitica Detection by PCR Not Detected Not Detected LAB MICROBIOLOGY METHOD 5 9:11 PM [facility] Enteroaggregative E coli EAEC Detection by PCR Not Detected Not Detected LAB MICROBIOLOGY METHOD 5 9:11 PM [facility] Enteropathogenic E coli EPEC Detection Not Detected Not Detected LAB MICROBIOLOGY METHOD 5 9:11 PM [facility] Enterotoxigenic E coli ETEC LTST Detection Not Detected Not Detected LAB MICROBIOLOGY METHOD 5 9:11 PM [facility] Shiga-like toxin producing E coli STEC STX1 STX2 Det Not Detected Not Detected LAB MICROBIOLOGY METHOD 5 9:11 PM [facility] Shigella Enteroinvasive E coli EIEC Detection Not Detected Not Detected LAB MICROBIOLOGY METHOD 5 9:11 PM [facility] Cryptosporidium Detection by PCR Not Detected Not Detected LAB MICROBIOLOGY METHOD 5 9:11 PM [facility] Cyclospora cayetanensis Detection by PCR Not Detected Not Detected LAB MICROBIOLOGY METHOD 5 9:11 PM [facility] Entamoeba histolytica Detection by PCR Not Detected Not Detected LAB MICROBIOLOGY METHOD 5 9:11 PM [facility] Giardia lamblia Detection by PCR Not Detected Not Detected LAB MICROBIOLOGY METHOD 5 9:11 PM [facility] Adenovirus F 40 41 Detection by PCR Not Detected Not Detected LAB MICROBIOLOGY METHOD 5 9:11 PM EST [facility] Astrovirus Detection by PCR Not Detected Not Detected LAB MICROBIOLOGY METHOD 5 9:11 PM EST [facility] Norovirus GI GII Detection by PCR Not Detected Not Detected LAB MICROBIOLOGY METHOD 5 9:11 PM EST [facility] Sapovirus Detection by PCR Not Detected Not Detected LAB MICROBIOLOGY METHOD 5 9:11 PM [facility] Rotavirus A Detection by PCR Not Detected Not Detected LAB MICROBIOLOGY METHOD 5 9:11 PM [facility] Stool Rectum structure / Unknown Non-blood Collection / Unknown 04/05/2024 1:53 PM EST 04/05/2024 1:53 PM EST [facility] - 04/05/2024 9:11 PM EST PCR testing is much more sensitive than traditional techniques and allows for the detection of low numbers of stool pathogens. The clinical correlation of PCR results with the need for treatment and clinical outcomes has not been established. Therefore the results of PCR testing for stool pathogens must be taken into clinical context when making treatment decisions. This is a diagnostic test only, repeat testing for cure is not advised. You may consider infectious disease consult for additional guidance. ??Testing Performed by [facility] Bre Jose NP LAB MICROBIOLOGY - GENERAL ORD ERABLES Final Result [facility] [address] [place] [address], * Clostridium difficile toxin (04/05/2024 1:53 PM EST) Clostridium difficile GDH Antigen Negative Negative 04/05/2024 8:12 PM [facility] C difficile Toxins A+B, EIA Negative Negative 04/05/2024 8:12 PM [facility] Comment:NEGATIVE FOR TOXIN P RODUCING CLOSTRIDIOIDES DIFFICILE, NO ADDITIONAL TESTING IS NECESSARY. Stool Rectum structure / Unknown Non-blood Collection / Unknown 04/05/2024 1:53 PM EST 04/05/2024 1:53 PM EST Bre Jose NP LAB MICROBIOLOGY - GENERAL ORD ERABLES Final Result [facility] ([facility]) [facility] [address] [place] [address], * Hemoglobin A1c (06/23/2023) [facility] Hemoglobin A1C 5.9 <=6.5 % Blood Venous blood specimen / Unknown Historical Provider LAB BLOOD ORDERABLES Latonya l Result * Lipid panel (01/08/2023) [facility] LDL/HDL Ratio 4 0 - 4 Comment:3.5 Triglycerides 62 0 - 150 mg/dL Cholesterol 141 0 - 200 mg/dL HDL 40 >=40 mg/dL LDL Cholesterol 89 0 - 100 mg/dL Blood Venous blood specimen / Unknown Historical Provider LAB BLOOD ORDERABLES Latonya l Result * Cervical Cancer Screening: HPV (09/03/2022) [facility] Cervical Cancer Screening: HPV Negative, Abstracted Historical Provider HEALTH MAINTENANCE Final Result * Hepatitis C Screening (09/14/2021) [facility] Hepatitis C Screening Abstracted Historical Provider HEALTH MAINTENANCE Final Result * Urine Albumin Creatinine Ratio (06/13/2021) [facility] Urine Albumin Creatinine Ratio Abstracted Historical Provider HEALTH MAINTENANCE Final Result from Last 3 Months or Most Recently Relevant to Health Maintenance Insurance [address] [place] [id number] [facility] [employer] Advance Directives Documents on File Type Date Recorded Patient Medical Fee Clerk Expl anation Health Care Decision (hx) 06/26/2022 AD GAUTAM DIRECTIVE Health Care Decision (hx) 06/26/2022 AD GAUTAM DIRECTIVE Health Care Decision (hx) 06/26/2022 AD GAUTAM DIRECTIVE Health Care Decision (hx) 06/26/2022 AD GAUTAM DIRECTIVE Health Care Decision (hx) 06/26/2022 AD GAUTAM DIRECTIVE Health Care Decision (hx) 06/24/2022 HE ALTH CARE PROXY Health Care Decision (hx) 06/24/2022 HE ALTH CARE PROXY Health Care Decision (hx) 06/24/2022 HE ALTH CARE PROXY Health Care Decision (hx) 06/24/2022 HE ALTH CARE PROXY Health Care Decision (hx) 06/24/2022 HE ALTH CARE PROXY Care Teams First Dyer Relationship Specialty Start Date End Date Sonam Boles MD [address] [facility] [place] [id number] PCP - General Internal Medicine 04/15/24
[2024-06-16 08:09] VITALS: BP 120/86; TEMP 36.2; BMI 26.0
== END 2024-06-16 08:55 | disposition home or self-care (01) ==
DX: I48.19 Other persistent atrial fibrillation (principal); I10 Essential (primary) hypertension; K90.9 Intestinal malabsorption, unspecified; R19.7 Diarrhea, unspecified; K57.90 Diverticulosis of intestine, part unspecified, without perforation or abscess without bleeding

== ENCOUNTER → 2024-06-16 08:04 | Outpatient (BNVA) | payer OTHER, SELFPAY | DX: I48.19 Other persistent atrial fibrillation (principal); I10 Essential (primary) hypertension; K90.9 Intestinal malabsorption, unspecified; R19.7 Diarrhea, unspecified; K57.90 Diverticulosis of intestine, part unspecified, without perforation or abscess without bleeding; Z79.01 Long term (current) use of anticoagulants; Z79.899 Other long term (current) drug therapy | CPT/HCPCS: 96127 ==

== ENCOUNTER 2024-08-05 13:16 | Outpatient (REF) | payer OTHER, SELFPAY ==
--- NOTE | ~2024-08-05 | MM_ITS ---
EXAMINATION: MM SCREENING DIGITAL BREAST TOMOSYNTHESIS, BILATERAL CLINICAL INFORMATION: Screening. Asymptomatic. COMPARISON: Mammography: Baseline. TECHNIQUE: Digital breast mammography with tomosynthesis is performed in both the craniocaudal and mediolateral oblique views along with computer-aided detection (CAD). FINDINGS: There are scattered areas of fibroglandular density (ACR BI-RADS breast composition Category b). There are no significant masses, abnormal calcifications, or other abnormalities. MM/MM tomosynthesis screening BI IMPRESSION: No mammographic evidence of malignancy. ASSESSMENT: BI-RADS BI-RADS 1 - Negative RECOMMENDATION: Routine annual mammography screening. 1 year F/U This examination should not preclude the clinical evaluation of a suspicious palpable abnormality. This patient's information was entered into a reminder system with a target due date for their next mammogram. Electronically signed by: Negra Holguin DO 08/10/2024 05:45 PM EDT
--- OUTSIDE RECORDS SUMMARY | 2024-08-05 14:23 | XMS_ITS | Clinical Summary ---
Author Organization 175 [facility] Address [address] [place] [address] Phone Care Team Providers Care Ultimate Hoops Trainer Name Role Phone Sonam Boles MD Primary Care Provider [phone] Allergies Active Allergy Reactions Criticality Noted Date Comments Atorvastatin Calcium 02/04/2019 Other Reaction(s): Hives/Urticaria Clopidogrel 04/02/2019 Other Reaction(s): Hives/Urticaria Metformin 09/03/2022 Rash with sun Medications losartan (COZAAR) 50 mg tablet TAKE ONE TABLET BY MOUTH EVERY DAY 4 Active zinc glycinate 30 mg capsule Take 1 Capsule by mouth daily. 4 Active naproxen sodium (ANAPROX) 220 mg tablet Take 2 Tablets by mouth daily as needed. Active multivit-min/iro n/folic acid/K (ADULTS MULTIVITAMIN ORAL) Take 1 Tablet by mouth daily. Active estradioL (ESTRACE) 0.01 % (0.1 mg/gram) vaginal cream Apply 1gm apply pv daily for the 1st wk then twice wkly 4 11/01/19 25 Active dilTIAZem (TIAZAC) 360 mg 24 hr capsule Take 1 capsule (360 mg total) by mouth 1 (one) time each day. 90 capsule 1 5 Active nystatin (MYCOSTATIN) 100,000 unit/gram powder Apply topically 2 (two) times a day. 15 g 5 07/14/19 26 Active colestipoL (COLESTID) 1 gram tablet Take 1 tablet (1 g total) by mouth 2 (two) times a day. 60 each 5 08/14/19 25 Active metoprolol succinate (TOPROL-XL) 25 mg 24 hr tablet Take 1 tablet (25 mg total) by mouth 1 (one) time each day. Do not crush or chew. 90 tablet 1 5 Active apixaban (Eliquis) 5 mg tablet Take 1 tablet (5 mg total) by mouth 2 (two) times a day. TAKE ONE TABLET BY MOUTH TWICE A DAY 180 tablet 1 5 Active apixaban (Eliquis) 5 mg tablet TAKE ONE TABLET BY MOUTH TWICE A DAY 4 07/27/19 25 Discontin ued(Reord er) metoprolol succinate (TOPROL-XL) 25 mg 24 hr tablet Take 1 Tablet by mouth daily. 4 07/17/19 25 Discontin ued(Reord er) nystatin (MYCOSTATIN) 100,000 unit/gram powder Apply topically 2 (two) times a day. 15 g 4 07/12/19 25 Discontin ued(Reord er) colestipoL (COLESTID) 1 gram tablet Take 1 tablet (1 g total) by mouth 2 (two) times a day. 60 each 5 07/15/19 25 Discontin ued(Reord er) Active Problems Problem Noted Date Diagnosed Date [...] to monitor carefully. Atrial fibrillation with RVR ([facility] V24, [facility] V28) 05/20/2022 Overview (11/12/2023): Last Assessment [...] apnea moderate AHI 15 with nocturnal hypoxemia: [facility] Home sleep test 06/11/2021. Weight 335. BMI [...] using his CPAP nightly. Anxiety 04/03/2020 Diabetes ([facility] V24, [facility] V28) 03/24/2020 Trochanteric bursitis, left hip 04/02/2019 [...] Encounters Date Type Department Care Team Description 08/05/2024 Telephone Gastroenterology - [place] 175 [facility] 175 [facility] [address] [place] [address] Kaila Mcqueen LPN Anticoagulation (Colonoscopy on 09/06/[address] Ortiz) 06/15/2024 1:20 PM EDT Consult Gastroenterology - [place] 175 [facility] 175 [facility] [address] [place] [address] Merna aSravia NP Intestinal malabsorption following gastrectomy (Primary Dx); Screening for colorectal cancer; Gassiness 06/15/2024 Telephone Gastroenterology - [place] 175 [facility] 175 [facility] [address] [place] [address] Merna Saravia NP 05/25/2024 12:23 PM EDT - 05/25/2024 11:59 PM EDT Hospital Encounter [facility] CT Scan [address] [place] [phone] Abdominal pain, unspecified abdominal location; Abdominal distention Discharge Disposition: Home or Self Care 05/24/2024 1:00 PM EDT Nutrition Bariatric Surgery - [place] 175 [facility] [address] [place] [phone] Overweight (BMI 25.0-29.9) (Primary Dx) 05/18/2024 1:45 PM EDT Office Visit Bariatric Surgery - [address] [place] [address] Ritika Payan PA Overweight (BMI 25.0-29.9) (Primary Dx); Steatorrhea; Bariatric surgery status from Last 3 Months Surgical History Surgery Date Site/Laterality Comments CHOLECYSTECTOMY PROCEDURE: HISTORICAL CHOLECYSTECTOMY WISDOM TOOTH EXTRACTION PROCEDURE: HISTORICAL WISDOM TEETH EXTRACTION OTHER SURGICAL HISTORY PROCEDURE: MS GASTRIC RSTCV W/PRTL GASTRECTOMY 50-100 CM; COMMENT: sleeve- on 2022 Medical History Medical History Date Comments Hypertension 02/04/2019 DX:Hypertension VSD (ventricular septal defect) 02/05/2019 DX:VSD (ventricular septal defect) Chronic knee pain 02/05/2019 DX:Chronic kne e pain; COMMENT: Bursitis and OA Trochanteric bursitis, left hip 04/02/2019 DX:Trochanteric bursitis, left hip Morbid obesity with BMI of 5 0.0-59.9, adult ([facility] V24, [facility] V28) 04/02/2019 DX:Morbid obesity wit h BMI of 50.0-59.9, adult ([facility]) History of stroke 04/02/2019 DX:History of stroke Diabetes ([facility] V24, [facility] V28) 03/24/2020 DX:Diabetes ([facility]) Anxiety 04/03/2020 DX:Anxiety Paroxysmal atrial fibrillati on ([facility] V24, [facility] V28) DX:Paroxysmal atrial fibril lation ([facility]) Social History Tobacco Use Types [...] 98 06/15/2024 1:12 PM EDT Temperature 36.5 C (97.7 F) 04/07/2024 3:39 PM EST Respiratory Rate 18 04/07/2024 3:39 PM EST [...] 08/13/2024 1:00 PM EDT Nutrition Bariatric Surgery [facility] [address] [phone] Melinda Ann, STEPHANIE [address] [phone] 08/24/2024 1:15 PM EDT Office Visit Bariatric Surgery [facility] [address] [phone] Ritika Payan PA [address] [phone] 09/06/2024 10:00 AM EDT Hospital Encounter [facility] Endoscopy [address] [place] [phone] Sonam Ortiz MD [address] [phone] Health Maintenance Due Date Last Done Comments [...] Abdominal pain, unspecified abdominal location Abdominal distention COMPREHENSIVE METABOLIC PANEL STAT 04/07/2024 4:48 PM EST HEMOGLOBIN A1C Routine 06/23/2023 LIPID PANEL Routine [...] EDT Impressions 05/27/2024 3:16 PM EDT 1. Sigmoid diverticulosis. No evidence of acute diverticulitis. No acute findings. 2. Mild splenomegaly. -------- FINAL REPORT -------- Dictated By: Ilya Monroe Dictated Date: 05/27/2024 15:10 ET Assigned Physician: Ilya Monroe Reviewed and Electronically Signed By: Ilya Monroe Signed Date: 05/27/2024 15:16 ET Workstation ID: [id number] Transcribed By: Self Edit Transcribed Date: 05/27/2024 15:10 ET Narrative 05/27/2024 3:16 PM EDT PROCEDURE: CT of the abdomen and pelvis without intravenous contrast. HISTORY: Abdominal distension. Diverticulitis suspected. COMPARISON: No prior studies available for comparison. TECHNIQUE: Noncontrast CT of the abdomen and pelvis with coronal and sagittal reformats. Dose length product: 817 mGy-cm. FINDINGS: Lung bases: Small amount of osteophyte associated scarring in the medial right lower lobe. There are a few thin linear bands of atelectasis or scarring at both bases. Cardiac: Moderate cardiomegaly. Liver: Limited evaluation without intravenous contrast. No visible abnormality. Biliary: Cholecystectomy. Pancreas: Limited evaluation without intravenous contrast. No visible abnormality. Spleen: Limited evaluation without intravenous contrast. Enlarged, measuring 14 cm craniocaudal. Adrenal glands: Normal. Kidneys: Limited evaluation without intravenous contrast. No visible abnormality. Normal appearance of the ureters. Retroperitoneum: No mass or adenopathy. Abdominal vasculature: Mild atherosclerotic calcification. Bowel/mesentery: Postsurgical changes of gastric sleeve procedure. Appendix not identified. Sigmoid diverticulosis without evidence of significant diverticulitis. No obstruction or adenopathy. No mass or ascites. Abdominal wall: Small fat-containing paraumbilical hernia. Mild anasarca. Mild scarring in the supraumbilical midline. Pelvic nodes: No adenopathy. Pelvic organs: Normal. Bones: Degenerative changes of the spine. Transitional anatomy on the left at the lumbosacral [...] Signed Date: 05/27/2024 15:16 ET Workstation ID: [id number] Transcribed By: Self Edit Transcribed Date: 05/27/2024 15:10 ET [place] [facility] IMG CT PROCEDURES Final Resu lt * (ABNORMAL) Comprehensive metabolic panel (04/07/2024 4:48 PM EST) Sodium 143 133 - 145 mmol/L LAB CHEMISTRY METHOD 04/07/2024 5:35 PM [facility] Potassium 4.1 3.5 - 5.5 mmol/L LAB CHEMISTRY METHOD 04/07/2024 5:35 PM [facility] Chloride 106 96 - 110 mmol/L LAB CHEMISTRY METHOD 04/07/2024 5:35 PM [facility] CO2 33(H) 21 - 32 mmol/L LAB CHEMISTRY METHOD 04/07/2024 5:35 PM [facility] Anion Gap 4 3 - 11 LAB CHEMISTRY METHOD 04/07/2024 5:35 PM [facility] Glucose 103(H) 70 - 100 mg/dL LAB CHEMISTRY METHOD 04/07/2024 5:35 PM [facility] BUN 31(H) 5 - 25 mg/dL LAB CHEMISTRY METHOD 04/07/2024 5:35 PM [facility] Creatinine 0.67 0.50 - 1.10 mg/dL LAB CHEMISTRY METHOD 04/07/2024 5:35 PM [facility] eGFR 102 >=60 mL/min/1. 73m2 LAB CHEMISTRY METHOD 04/07/2024 5:35 PM [facility] Comment:Calculation based on the Chronic Kidney Disease Epidemiology Collaboration (CKD-EPI) equation refit without adjustment for race. BUN/Creatinine Ratio 46.3 LAB CHEMISTRY METHOD 04/07/2024 5:35 PM [facility] Calcium 10.0 8.5 - 10.5 mg/dL LAB CHEMISTRY METHOD 04/07/2024 5:35 PM [facility] AST (SGOT) 27 10 - 42 unit/L LAB CHEMISTRY METHOD 04/07/2024 5:35 PM [facility] ALT (SGPT) 78(H) 10 - 60 unit/L LAB CHEMISTRY METHOD 04/07/2024 5:35 PM [facility] Alkaline Phosphatase 180(H) 42 - 121 unit/L LAB CHEMISTRY METHOD 04/07/2024 5:35 PM [facility] Total Protein 6.2 6.0 - 8.0 g/dL LAB CHEMISTRY METHOD 04/07/2024 5:35 PM [facility] Albumin 3.3 3.2 - 5.0 g/dL LAB CHEMISTRY METHOD 04/07/2024 5:35 PM [facility] Total Bilirubin 1.0 0.0 - 1.4 mg/dL LAB CHEMISTRY METHOD 04/07/2024 5:35 PM [facility] Blood Venous blood specimen / Unknown Venipuncture / Unknown 04/07/2024 4:48 PM EST 04/07/2024 5:03 PM EST us Ibrahima Frankel DO LAB BLOOD ORDERABLES Final Res ult [facility] [address] [place] [address], * Hemoglobin A1c (06/23/2023) Hemoglobin A1C 5.9 <=6.5 % Blood Venous blood specimen / Unknown [facility] Provider MD LAB BLOOD ORDERABLES Latonya l Result * Lipid panel (01/08/2023) [facility] LDL/HDL Ratio 4 0 - 4 Comment:3.5 Triglycerides 62 0 - 150 mg/dL Cholesterol 141 0 - 200 mg/dL HDL 40 >=40 mg/dL LDL Cholesterol 89 0 - 100 mg/dL Blood Venous blood specimen / Unknown Result [facility] Provider LAB BLOOD ORDERABLES Latonya l Result * Cervical Cancer Screening: HPV (09/03/2022) [facility] Cervical Cancer Screening: HPV Negative, Abstracted Result [facility] Provider HEALTH MAINTENANCE Final Result * Hepatitis C Screening (09/14/2021) [facility] Hepatitis C Screening Abstracted [facility] Provider HEALTH MAINTENANCE Final Result * Urine Albumin Creatinine Ratio (06/13/2021) 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
== END 2024-08-05 13:17 | disposition home or self-care (01) ==
LOC: HO.MAMMO 13:16
DX: Z12.31 Encounter for screening mammogram for malignant neoplasm of breast (principal)
CPT/HCPCS: 77063; 77067

== ENCOUNTER → 2024-08-05 13:30 | Outpatient (BNV) | payer OTHER, SELFPAY | PROVIDERS: Visit Provider Internal Medicine | DX: Z12.31 Encounter for screening mammogram for malignant neoplasm of breast (principal) | CPT/HCPCS: 77063; 77067 ==

== ENCOUNTER 2024-11-18 12:51 | Outpatient (AMB) | payer OTHER, SELFPAY ==
[2024-11-18 12:53] VITALS: BP 120/80; PULSE 57; RESP 18; O2SAT 99; BMI 27.1
--- NOTE | 2024-11-18 12:53 | MHC.PC.OV ---
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 Required: No Accompanied by: Self / Same As Patient Allergies atorvastatin Allergy (Unknown, Uncoded 06/16/24 08:13) hives, joint pain metformin Adverse Reaction (Intermediate, Uncoded 06/16/24 08:13) hives plavix Adverse Reaction (Unknown, Uncoded 06/16/24 08:13) Unknown Medication List - Last Reconciled 11/18/24 by Becky Brooks PA-C apixaban (Eliquis) 5 mg PO BID colestipol 1 g PO BID diltiazem HCl ER (Tiadylt ER) 360 mg PO DAILY estradiol 0.01%(0.1mg/gram) vaginal losartan 50 mg PO DAILY metoprolol succinate ER 25 mg PO DAILY csanjoheydbi-urn-wckf-FA-vit K 18 mg iron-400 mcg-25 mcg (Adults Multivitamin) tabs PO naproxen sodium 440 mg PO DAILY nystatin (Nyamyc) topical BID zinc glycinate 30 mg PO DAILY Tobacco use date assessed: 11/18/24 Dental Screening Dental Screen Date: 11/18/24 Did you have a dental visit in the last 12 months?: No Did you have a dental problem in the last 6 months where you did not have access to dental care?: No Was dental information given to patient?: No HPI annual exam HPI Details 59-year-old female with past medical history of atrial fibrillation, hypertension and diverticulosis last seen 06/11 coming in for annual exam. She was diagnosed with bile acid malabsorption and was prescribed a new medication, colestipol, to manage the condition. The patient underwent a colonoscopy, which returned normal results, and a mammogram as part of her preventative care. The patient reports symptoms of trigger finger in her right thumb, characterized by clicking and soreness, particularly in the morning. The condition has been attributed to repetitive use due to her job, and she has noticed some improvement with a change in her vehicle's steering wheel Mammogram: 07/2024 Pap smear: Chelsi Colonoscopy: Chelsi 2024 vaccines: [facility] Surgical History S/P gastric sleeve procedure History of cholecystectomy Family History Family/Other Substance use disorder Mother No problems noted. Father No problems noted. Social History Housing: Apartment Alcohol intake: current Alcohol intake frequency: holidays/special occasions only Alcohol type: hard liquor Patient Tobacco Use Status: Never used Tobacco e-Cigarette/Vaping Use: Never Used Second Hand Smoke Exposure: No service: No Current occupational status: employed Cognitive needs: No Hearing needs: No Vision needs: No Questionnaire Thrive Questionnaire Date Thrive assessed: 06/16/24 I am a: Patient What is your living situation today?: I have a steady place to live Within the past 12 months, did the food you bought not last and you didn't have the money to get more?: Never true Within the past 12 months, did you worry whether your food would run out before you got money to buy more?: Never true Do you have trouble paying for medicines?: I choose not to answer this question Do you have trouble getting transportation to medical appointments?: No Do you have trouble paying your heating and electricity bill?: No Do you have trouble taking care of your child, family member or friend?: No Do you have trouble with day-to-day activities such as bathing, preparing meals, shopping, managing finances, etc.?: No Are you currently unemployed and looking for a job?: No Are you interested in more education?: No Please select the resources that you would like help with: None Currently or been in a relationship where the following occur: I choose not to answer THRIVE Score: 0 HERO-7 AMB Questionnaire HERO-7 Date HERO - 7 assessed: 06/16/24 Source: Developed by Drs. Oj Suero, Mimi Miguel, Mitch Piper and colleagues, with an educational spencer from [employer]. Review of Systems Const Denies body aches, Denies fatigue, Denies fever(s), Denies frequent falls, Denies headache(s) and Denies weakness Eyes Reports no additional complaints and Denies change in vision ENT Denies dysphagia, Denies dizziness, Denies facial pain, Denies headache(s), Denies nasal congestion and Denies odynophagia Card Denies chest pain, Denies syncope, Denies irregular heart rhythm, Denies leg edema, Denies lightheadedness and Denies dyspnea Resp Denies cough and Denies dyspnea GI Denies abdominal pain, Denies constipation, Denies dysphagia, Denies dyspepsia, Denies diarrhea, Denies nausea, Denies odynophagia and Denies vomiting Denies urinary frequency, Denies dysuria, Denies urinary hesitancy and Denies urinary urgency Musc Denies back pain and Denies myalgias Skin/Breast Reports system reviewed and no additional complaints, except as documented Neuro Denies dizziness, Denies syncope, Denies frequent falls, Denies headache(s) and Denies weakness Psych Reports no additional complaints Endo Denies fatigue Physical exam (Primary Care) Vital Signs: Last Vital Signs Pulse 57 11/18/24 12:53 Resp 18 11/18/24 12:53 BP 120/80 11/18/24 12:53 Pulse Ox 99 11/18/24 12:53 Oxygen Delivery Method Room Air 11/18/24 12:53 BMI result Body Mass Index 27.1 Tobacco/Smoking Status: Tobacco use Status Tobacco use date assessed 11/18/24 11/18/24 13:01 Patient Tobacco Use Status Never used Tobacco 11/18/24 13:01 e-Cigarette/Vaping Use Never Used 11/18/24 13:01 Thrive Assessment: Date of Thrive Assessment Date Thrive assessed 06/16/24 11/18/24 13:01 Currently or been in a relationship where the following occur: I choose not to answer Const General: cooperative, healthy appearing, comfortable and no acute distress Orientation/consciousness: patient oriented x3 HENMT Head: Yes normocephalic Ears: hearing grossly normal bilaterally, external ears normal, TM's normal bilaterally and EAC's normal General nose exam: Normal external nose present Face and sinus: Yes normal facial exam and Yes sinuses nontender Mouth: Normal oral and palatal mucosa present and tongue normal Throat: Yes posterior oropharynx normal Eyes General: appearance normal, both eyes and all related structures Conjunctivae: conjunctivae normal Pupils: Equal, round and reactive pupils present EOM: EOMs intact bilaterally and No Nystagmus present Neck Neck: Yes normal visual inspection, Yes full ROM and Yes no lymphadenopathy Chest Chest palpation & inspection: normal inspection of the chest Resp Effort & Inspection: normal respiratory effort Auscultation: clear to auscultation bilaterally, no crackles, no rales, no rhonchi, no wheezes and breath sounds present Cardio Rate: regular rate Rhythm: regular rhythm Peripheral pulses: radial pulses present and dorsalis pedis present GI Inspection: Yes normal to inspection and No Abdominal wall edema Palpation (GI): Soft to palpation, not firm and nontender Auscultation: normal bowel sounds Rectal Exam - Female: deferred General: Yes no CVA tenderness Back/Spine/Pelvis Back: no CVA tenderness Skin General skin exam: no rashes or lesions noted Neuro General: patient oriented x3 Cranial nerves: Yes Equal, round and reactive pupils present, Yes Midline tongue present, Yes Ability to bilaterally elevate shoulders present and No Nystagmus present Gait exam (Neuro): Normal gait present Extrem General: Yes normal to inspection, Yes full ROM, No no pedal edema and No edema Psych Speech and movement: Normal speech and movement present Affect: normal affect Insight: Good insight present (Psych) Judgement: Good judgement present (Psych) Coding Level of Care Code Est Pt Prev Care 40-64y(07830) Diagnoses Annual physical exam Z00.00 Persistent atrial fibrillation I48.19 Atrial fibrillation type: persistent (not longstanding) Primary hypertension I10 Hypertension type: primary hypertension Diarrhea due to malabsorption K90.9; R19.7 Diarrhea type: due to malabsorption Malabsorption K90.9 Diverticulosis K57.90 Trigger finger of right thumb M65.311 Assessment & Plan Assessment & Plan (1) Annual physical exam: Code(s): Z00.00 - Encounter for general adult medical examination without abnormal findings Category: Medical Plan: Patient is up-to-date on all recommended routine screenings and vaccinations for her age. Blood work is not up-to-date and was ordered today including fasting lab work. Patient to follow up in 6 months or sooner as needed pending blood work evaluation. Healthy diet and regular exercise is encouraged. (2) Atrial fibrillation: Comment: [facility] Code(s): I48.91 - Unspecified atrial fibrillation Category: Medical Qualifiers: Atrial fibrillation type: persistent (not longstanding) Qualified Code(s): I48.19 - Other persistent atrial fibrillation Plan: Follows with [facility] had unsuccessful ablation. She is maintained on metoprolol and diltiazem and anticoagulation with Eliquis. (3) Hypertension: Code(s): I10 - Essential (primary) hypertension Category: Medical Qualifiers: Hypertension type: primary hypertension Qualified Code(s): I10 - Essential (primary) hypertension Plan: Continue on current blood pressure medication. Avoid salt intake and encourage healthy diet and regular exercise. (4) Diarrhea: Code(s): R19.7 - Diarrhea, unspecified Category: Medical Qualifiers: Diarrhea type: due to malabsorption Qualified Code(s): K90.9 - Intestinal malabsorption, unspecified; R19.7 - Diarrhea, unspecified Plan: Has resolved with the use of colestipol (5) Malabsorption: Code(s): K90.9 - Intestinal malabsorption, unspecified Category: Medical Plan: See plan above (6) Diverticulosis: Code(s): K57.90 - Diverticulosis of intestine, part unspecified, without perforation or abscess without bleeding Category: Medical Plan: Most recent colonoscopy WNL. (7) Trigger finger of right thumb: Code(s): M65.311 - Trigger thumb, right thumb Category: Medical Plan: Discussed nightly splinting of the thumb to reduce inflammation. Also offered referral to Orthopedics if symptoms worsen or progress. Plan This note was constructed using voice recognition software. While every effort has been made to ensure accuracy and attendant children's institution, still areas may have been included sometimes these areas may affect the content or meeting of the given symptoms. Total time spent caring for the patient today was 30 minutes. This includes time spent before the visit reviewing the chart, time spent during the visit, and time spent after the visit and documentation. Patient was informed and verbally consented to the use of an ambient scribe for clinic note documentation during this visit. Orders: Orders Comprehensive Met. Panel Today K90.9 - Intestinal malabsorption, unspecified, Z00.00 - Encounter for general adult medical examination without abnormal findings TSH reflex Free T4 Today Z13.29 - Encounter for screening for other suspected endocrine disorder Vitamin B12 and Folate Today K90.9 - Intestinal malabsorption, unspecified, Z13.21 - Encounter for screening for nutritional disorder Vitamin D 25-OH Total Today K90.9 - Intestinal malabsorption, unspecified, Z13.21 - Encounter for screening for nutritional disorder Hemoglobin A1c Today Z13.1 - Encounter for screening for diabetes mellitus Complete Blood Count Auto Diff Today K90.9 - Intestinal malabsorption, unspecified, Z13.0 - Encounter for screening for diseases of the blood and blood-forming organs and certain disorders involving the immune mechanism Lipid Panel Today Z13.220 - Encounter for screening for lipoid disorders
--- OUTSIDE RECORDS SUMMARY | 2024-11-18 14:19 | XMS_ITS ---
Author Name [facility] Organization Unknown Care Team Organization Name Specialty Phone Email Start Date End [facility] 10/24/2022 10/06/2023 [facility] Lag[facility] [id number]
--- OUTSIDE RECORDS SUMMARY | 2024-11-18 14:19 | XMS_ITS | Clinical Summary ---
Author Organization 175 [facility] Address [address] [place] [address] Phone Care Team Providers Care Chain Carrier Name Role Phone Sonam Boles MD Primary Care Provider [phone] Allergies Active Allergy Reactions Criticality Noted Date Comments Atorvastatin Calcium 02/04/2019 Other Reaction(s): Hives/Urticaria Clopidogrel 04/02/2019 Other Reaction(s): Hives/Urticaria Metformin 09/03/2022 Rash with sun Medications zinc glycinate 30 mg capsule Take 1 Capsule by mouth daily. 4 Active naproxen sodium (ANAPROX) 220 mg tablet Take 2 Tablets by mouth daily as needed. Active multivit-min/iro n/folic acid/K (ADULTS MULTIVITAMIN ORAL) Take 1 Tablet by mouth daily. Active estradioL (ESTRACE) 0.01 % (0.1 mg/gram) vaginal cream Apply 1gm apply pv daily for the 1st wk then twice wkly 4 Active nystatin (MYCOSTATIN) 100,000 unit/gram powder Apply topically 2 (two) times a day. 15 g 5 026 Active metoprolol succinate (TOPROL-XL) 25 mg 24 hr tablet Take 1 tablet (25 mg total) by mouth 1 (one) time each day. Do not crush or chew. 90 tablet 1 5 Active apixaban (Eliquis) 5 mg tablet Take 1 tablet (5 mg total) by mouth 2 (two) times a day. TAKE ONE TABLET BY MOUTH TWICE A DAY 180 tablet 1 06/09/202 5 Active polyethylene glycol (Golytely) 236-22.74-6.74 -5.86 gram solution Take 4L by mouth once for one dose. May substitue any PEG. Starting at 2PM the day before your procedure drink 1 8oz glasses at your own pace until you complete half of the gallon. Finish 2nd half of the gallon at 8PM. 4000 mL 5 Active bisacodyL (DULCOLAX) 5 mg EC tablet Take 2 tablets by mouth right before beginning bowel prep. See instructions provided by the office 2 tablet 5 Active losartan (COZAAR) 50 mg tablet Take 1 tablet (50 mg total) by mouth 1 (one) time each day. 90 tablet 2 5 Active colestipoL (COLESTID) 1 gram tablet Take 1 tablet (1 g total) by mouth 2 (two) times a day. 180 each 5 025 Active UNABLE TO FIND Place on the skin. Med Name: multivitamin patch Active dilTIAZem (TIAZAC) 360 mg 24 hr capsule Take 1 capsule (360 mg total) by mouth 1 (one) time each day. 90 capsule 1 5 Active Active Problems Problem Noted Date Diagnosed Date Abdominal pannus 08/30/2024 Intertrigo 08/30/2024 S/P bariatric surgery 01/06/2024 Overweight (BMI 25.0-29.9) 12/22/2023 Class 1 [...] carefully. Atrial fibrillation with RVR (CMS/HCC V24, [facility]/ CC V28) 05/20/2022 Overview (11/12/2023): Last [...] apnea moderate AHI 15 with nocturnal hypoxemia: [facility] Home sleep test 06/11/2021. Weight 335. [...] using his CPAP nightly. Anxiety 04/03/2020 Diabetes ([facility] V24, [facility] V28) 03/24/2020 Trochanteric bursitis, left [...] Encounters Date Type Department Care Team Description 09/22/2024 Telephone Plastic & Reconstructive Surgery - [place] [address] [facility] [address] [place] [address] Hilario Gomez PA 09/06/2024 9:33 AM EDT Anesthesia Event [facility] [address] [place] [address] Theo Young MD Johnson, Lorraine, CRNA 09/06/2024 9:08 AM EDT - 09/06/2024 11:59 PM EDT Hospital Encounter [facility] [address] [place] [address] Sonam Ortiz MD Gomes, Sheldon B, MD Johnson, Lorraine, CRNA Screening for colorectal cancer Discharge Disposition: Home or Self Care 08/30/2024 1:00 PM EDT Consult Plastic & Reconstructive Surgery - [place] [address] [facility] [address] [place] [address] Hilario Gomez PA Abdominal pannus (Primary Dx); Intertrigo 08/24/2024 1:15 PM EDT Office Visit Bariatric Surgery - [place] 175 [facility] [address] [place] [address] Ritika Payan PA Overweight (BMI 25.0-29.9) (Primary Dx); S/P bariatric surgery; Symptomatic abdominal panniculus from Last 3 Months Surgical History Surgery Date Site/Laterality Comments CHOLECYSTECTOMY PROCEDURE: HISTORICAL CHOLECYSTECTOMY WISDOM TOOTH EXTRACTION PROCEDURE: HISTORICAL WISDOM TEETH EXTRACTION OTHER SURGICAL HISTORY PROCEDURE: MD GASTRIC RSTCV W/PRTL GASTRECTOMY 50-100 CM; COMMENT: sleeve- on 2022 Medical History Medical History Date Comments Hypertension 02/04/2019 DX:Hypertension VSD (ventricular septal defect) 02/05/2019 DX:VSD (ventricular septal defect) Chronic knee pain 02/05/2019 DX:Chronic kne e pain; COMMENT: Bursitis and OA Trochanteric bursitis, left hip 04/02/2019 DX:Trochanteric bursitis, left hip Morbid obesity with BMI of 5 0.0-59.9, adult ([facility] V24, [facility] V28) 04/02/2019 DX:Morbid obesity wit h BMI of 50.0-59.9, adult ([facility]) History of stroke 04/02/2019 DX:History of stroke Anxiety 04/03/2020 DX:Anxiety Paroxysmal atrial fibrillati on ([facility] V24, [facility] V28) DX:Paroxysmal atrial fibril lation ([facility]) Social History Tobacco Use Types Packs/Day Years Used Date Smoking Tobacco: Never Smokeless Tobacco: Never Tobacco Cessation:Counseling Given: Not Answered Alcohol Use Standard Drinks/Week Comments Yes 0 (1 standard drink = 0.6 oz pur e alcohol) occasional Interpersonal Safety Answer Date Record ed Physical Abuse Unrecognized value 09/06/2024 Verbal Abuse Unrecognized value 09/06/2024 Comments No Sex and Gender Information Value Date Recorded Sex Assigned at Female 04/07/2024 10:52 PM EST Legal Sex Female 10:25 AM EST Gender Identity Female 04/07/2024 10:52 PM EST Sexual Orientation Choose not to disclose 2024 10:52 PM EST Obstetrics History Last Filed Vital Signs Vital Sign Reading Time Taken Comments Blood Pressure 121/97 09/06/2024 10:14 AM EDT Pulse 61 09/06/2024 10:14 AM EDT Temperature 36.7 C (98 F) 09/06/2024 9:54 AM EDT Respiratory Rate 18 09/06/2024 10:14 AM EDT Oxygen Saturation 98% 09/06/2024 10:14 AM EDT Inhaled Oxygen Concentration - - Weight 72.6 kg (160 lb) 09/06/2024 9:24 AM EDT Height 170.2 cm (5' 7 ) 09/06/2024 9:24 AM EDT Body Mass Index 25.06 09/06/2024 9:24 AM EDT Plan of Treatment Upcoming Encounters Date Type Department Care Team (Late st Contact Info) Description 01/18/2025 3:00 PM EST Nutrition Bariatric Surgery - [place] [address] [address] Melinda Ann, RD [address] [address] 02/24/2025 10:15 AM EST Office Visit Bariatric Surgery - [place] [address] [address] Ritika Payan PA [address] [place] [phone] Health Maintenance Due Date Last Done Comments Breast Cancer Screening 1965 Diabetes: Annual Foot Exam 1976 Diabetes: Annual Retina Eye Exam 1976 Hepatitis B Vaccines (1 of 3 - 19+ 3-dose series) 1985 Pneumococcal Vaccine: 50+ Years (1 of 2 - PCV) 1985 Zoster Vaccines (1 of 2) 2016 Colorectal Cancer Screening: Stool Based Tests (FOBT/FIT) 01/26/2022 HIV Screening 01/26/2022 Social Influencers of Health Screening 01/26/2022 Diabetes: Annual Urine Albumin-Creatinine Ratio (uACR) 06/13/2022 06/13/2021 Diabetes: Blood Sugar Control Test (HGBA1C) 12/24/2023 06/23/2023, 06/23/2023 Depression Screening 02/18/2024 COVID-19 Vaccine ( season) 2024 Influenza Vaccine (#1) 2024 11/20/2023 Diabetes: Annual GFR (Glomerular Filtration Rate) 04/07/2025 04/07/2024, 01/08/2024, 11/20/2023, Additional history exists Hypertension/CHF/CAD Annual BMP Blood Test 04/07/2025 04/07/2024, 01/08/2024, 11/20/2023, Additional history exists Cervical Cancer Screening: HPV 09/04/2027 09/03/2022 Cholesterol Screening (Lipid Panel) 01/09/2028 01/08/2023 DTaP,Tdap,and Td Vaccines (2 - Td or Tdap) 11/19/2033 11/20/2023 RSV Immunization Adult Patients (1 - 1-dose 75+ series) 2041 Hepatitis C Screening Completed 09/14/2021 Colorectal Cancer Screening: Colonoscopy Discontinued 09/06/2024 HIB Vaccines Aged Out No longer eligi [...] Procedure Name Priority Date/Time Associated Diagnosis Comments COLONOSCOPY Routine 09/06/2024 9:53 AM EDT Screening for colorectal cancer COMPREHENSIVE METABOLIC PANEL STAT 04/07/2024 4:48 PM EST HEMOGLOBIN A1C Routine 06/23/2023 LIPID PANEL Routine 01/08/2023 HM HPV Routine 09/03/2022 HEPATITIS C SCREENING Routine 09/14/2021 URINE ALBUMIN CREATININE RATIO Routine 06/13/2021 from Last 3 Months or Most Recently Relevant to Health Maintenance Results * COLONOSCOPY Anesthesia - MAC; [facility] ENDOSCOPY (09/06/2024 9:53 AM EDT) Anatomical Region Laterality Modality Endoscopy 09/06/2024 9:35 AM EDT Impressions 09/06/2024 9:53 AM EDT - The examined portion of the ileum was normal. - Diverticulosis in the sigmoid colon. - Internal hemorrhoids. - The examination was otherwise normal. - No specimens collected. Recommendation: - Repeat colonoscopy in 10 years for screening purposes. Narrative 09/06/2024 9:53 AM EDT [facility] GI Patient Name: Celine Murray Procedure Date: 09/06/2024 9:35 AM Date of : 1965 Age: 58 Gender: Female Note Status: Finalized Attending MD: Sonam Ortiz MD, Procedure Date No Time: 09/06/2024 Procedure: Colonoscopy Indications: Screening for colorectal malignant neoplasm Providers: Sonam Ortiz MD Referring MD: Sonam Boles MD Medicines: Propofol per Anesthesia Complications: No immediate complications. Estimated Blood Loss: Estimated blood loss: none. Procedure: Pre-Anesthesia Assessment: - ASA Grade Assessment: III - A patient with severe systemic disease. After I obtained informed consent, the scope was passed under direct vision. Throughout the procedure, the patient's blood pressure, pulse, and oxygen saturations were monitored continuously.The Colonoscope was introduced through the anus and advanced to the terminal ileum. The colonoscopy was performed without difficulty. The patient tolerated the procedure well. The quality of the bowel preparation was good. Findings: The perianal and digital rectal examinations were normal. The terminal ileum appeared normal. Multiple medium-mouthed diverticula were found in the sigmoid colon. Internal hemorrhoids were found during retroflexion. The hemorrhoids were Grade I (internal hemorrhoids that do not prolapse). The exam was otherwise without abnormality. Procedure Code(s): --- Professional --- G0121, Colorectal cancer screening; colonoscopy on individual not meeting criteria for high risk Diagnosis Code(s): --- Professional --- Z12.11, Encounter for screening for malignant neoplasm of colon CPT copyright 2020 [employer]. All rights reserved. The codes documented in this report are preliminary and upon fulling mill operator review may be revised to meet current compliance requirements. Sonam Ortiz MD 09/06/2024 9:52:58 AM This report has been signed electronically.Sonam Ortiz MD Number of Addenda: 0 Note Initiated On: 09/06/2024 9:35 AM Scope In: Scope Out: Endoscopy Department at [facility] - [address] [place] [phone] Procedure Note Sonam Ortiz MD - 09/06/2024 [facility] GI Patient Name: Celine Murray Procedure Date: 09/06/2024 9:35 AM Date of : 1965 Age: 58 Gender: Female Note Status: Finalized Attending MD: Sonam Ortiz MD, Procedure Date No Time: 09/06/2024 Procedure: Colonoscopy Indications: Screening for colorectal malignant neoplasm Providers: Sonam Ortiz MD Referring MD: Sonam Boles MD Medicines: Propofol per Anesthesia Complications: No immediate complications. Estimated Blood Loss: Estimated blood loss: none. Procedure: Pre-Anesthesia Assessment: - ASA Grade Assessment: III - A patient with severe systemic disease. After I obtained informed consent, the scope was passed under direct vision. Throughout theprocedure, the patient's blood pressure, pulse, and oxygen saturations were monitored continuously.The Colonoscope was introduced through the anus and advanced to the terminal ileum. The colonoscopy was performed without difficulty. The patient tolerated the procedure well. The quality of the bowel preparation was good. Findings: The perianal and digital rectal examinations were normal. The terminal ileum appeared normal. Multiple medium-mouthed diverticula were found inthe sigmoid colon. Internal hemorrhoids were found duringretroflexion. The hemorrhoids were Grade I (internal hemorrhoids that do not prolapse). The exam was otherwise without abnormality. Procedure Code(s): --- Professional --- G0121, Colorectal cancer screening; colonoscopy on individual not meeting criteria for high risk Diagnosis Code(s): --- Professional --- Z12.11, Encounter for screening for malignantneoplasm of colon CPT copyright 2020 [employer]. All rights reserved. The codes documented in this report are preliminary and upon fulling mill operator reviewmay be revised to meet current compliance requirements. Sonam Ortiz MD 09/06/2024 9:52:58 AM This report has been signed electronically.Sonam Ortiz MD Number of Addenda: 0 Note Initiated On: 09/06/2024 9:35 AM Scope In: Scope Out: Endoscopy Department at [facility] - [address] [place] [id number] IMPRESSION: - The examined portion of the ileum was normal. - Diverticulosis in the sigmoid colon. - Internal hemorrhoids. - The examination was otherwise normal. - No specimens collected. Recommendation: - Repeat colonoscopy in 10 years for screening purposes. Sonam Ortiz MD GI~PROCEDURE ORDERABLES Final Result * (ABNORMAL) Comprehensive metabolic panel (04/07/2024 4:48 PM EST) Sodium 143 133 - 145 mmol/L LAB CHEMISTRY METHOD 04/07/2024 5:35 PM [facility] Potassium 4.1 3.5 - 5.5 mmol/L LAB CHEMISTRY METHOD 04/07/2024 5:35 PM [facility] Chloride 106 96 - 110 mmol/L LAB CHEMISTRY METHOD 04/07/2024 5:35 PM [facility] CO2 33(H) 21 - 32 mmol/L LAB CHEMISTRY METHOD 04/07/2024 5:35 PM [facility] Anion Gap 4 3 - 11 LAB CHEMISTRY METHOD 04/07/2024 5:35 PM [facility] Glucose 103(H) 70 - 100 mg/dL LAB CHEMISTRY METHOD 04/07/2024 5:35 PM [facility] BUN 31(H) 5 - 25 mg/dL LAB CHEMISTRY METHOD 04/07/2024 5:35 PM [facility] Creatinine 0.67 0.50 - 1.10 mg/dL LAB CHEMISTRY METHOD 04/07/2024 5:35 PM [facility] eGFR 102 >=60 mL/min/1. 73m2 LAB CHEMISTRY METHOD 04/07/2024 5:35 PM [facility] Comment:Calculation based on the Chronic Kidney Disease Epidemiology Collaboration (CKD-EPI) equation refit without adjustment for race. BUN/Creatinine Ratio 46.3 LAB CHEMISTRY METHOD 04/07/2024 5:35 PM [facility] Calcium 10.0 8.5 - 10.5 mg/dL LAB CHEMISTRY METHOD 04/07/2024 5:35 PM [facility] AST (SGOT) 27 10 - 42 unit/L LAB CHEMISTRY METHOD 04/07/2024 5:35 PM [facility] ALT (SGPT) 78(H) 10 - 60 unit/L LAB CHEMISTRY METHOD 04/07/2024 5:35 PM [facility] Alkaline Phosphatase 180(H) 42 - 121 unit/L LAB CHEMISTRY METHOD 04/07/2024 5:35 PM [facility] Total Protein 6.2 6.0 - 8.0 g/dL LAB CHEMISTRY METHOD 04/07/2024 5:35 PM [facility] Albumin 3.3 3.2 - 5.0 g/dL LAB CHEMISTRY METHOD 04/07/2024 5:35 PM [facility] Total Bilirubin 1.0 0.0 - 1.4 mg/dL LAB CHEMISTRY METHOD 04/07/2024 5:35 PM [facility] Blood Venous blood specimen / Unknown Venipuncture / Unknown 04/07/2024 4:48 PM EST 04/07/2024 5:03 PM EST us Ibrahima Frankel DO LAB BLOOD ORDERABLES Final Res ult [facility] [address] [place] [address], * Hemoglobin A1c (06/23/2023) Hemoglobin A1C 5.9 <=6.5 % Blood Venous blood specimen / Unknown [facility] Provider MD LAB BLOOD ORDERABLES Latonya l Result * Lipid panel (01/08/2023) [facility] LDL/HDL Ratio 4 0 - 4 Comment:3.5 Triglycerides 62 0 - 150 mg/dL Cholesterol 141 0 - 200 mg/dL HDL 40 >=40 mg/dL LDL Cholesterol 89 0 - 100 mg/dL Blood Venous blood specimen / Unknown Result [facility] Provider LAB BLOOD ORDERABLES Latonya l Result * Cervical Cancer Screening: HPV (09/03/2022) [facility] Cervical Cancer Screening: HPV Negative, Abstracted Result [facility] Provider HEALTH MAINTENANCE Final Result * Hepatitis C Screening (09/14/2021) [facility] Hepatitis C Screening Abstracted [facility] Provider HEALTH MAINTENANCE Final Result * Urine Albumin Creatinine Ratio (06/13/2021) [facility] Urine Albumin Creatinine Ratio Abstracted [facility] Provider HEALTH MAINTENANCE Final Result from Last 3 Months or Most Recently Relevant to Health Maintenance Insurance [id number] [place] [id number] [facility] Advance Directives Documents on File Type Date Recorded Patient Linux System Admin Expl anation Health Care Decision (hx) 06/26/2022 [...] 06/24/2022 [facility] [employer] Care Teams Chain Carrier Relationship Specialty Start Date End Date Sonam Boles MD [address] [place] [address] PCP - General Internal Medicine 04/15/24
== END 2024-11-18 13:45 | disposition home or self-care (01) ==
LOC: HO.HMCH 12:52
DX: Z00.00 Encounter for general adult medical examination without abnormal findings (principal); I48.19 Other persistent atrial fibrillation; I10 Essential (primary) hypertension; K90.9 Intestinal malabsorption, unspecified; R19.7 Diarrhea, unspecified; K57.90 Diverticulosis of intestine, part unspecified, without perforation or abscess without bleeding; M65.311 Trigger thumb, right thumb

== ENCOUNTER → 2024-11-18 12:51 | Outpatient (BNVA) | payer OTHER, SELFPAY | DX: Z00.00 Encounter for general adult medical examination without abnormal findings (principal); I48.91 Unspecified atrial fibrillation; I10 Essential (primary) hypertension; K57.90 Diverticulosis of intestine, part unspecified, without perforation or abscess without bleeding; M65.311 Trigger thumb, right thumb; K90.9 Intestinal malabsorption, unspecified; R19.7 Diarrhea, unspecified | CPT/HCPCS: 99396 ==